=== PATIENT | female | born 1955 | race Caucasian/White ===

== ENCOUNTER → 2017-05-27 09:31 | Outpatient (CLI) | payer OTHER, SELFPAY ==
[2017-05-27 10:34] LABS: Absolute Neutrophil Count 4.3 X10^3/uL (2.0-7.7); Basophil# 0.03 X10^3/uL; Basophil% 0.4 % (0-1); Eosinophil# 0.07 X10^3/uL; Hematocrit 39.4 % (37-47); Hemoglobin 12.9 g/dl (12.0-15.0); Lymphocyte % 28.4 % (19-41); Mean Corp Hgb Conc 32.7 g/gl (32-36); Mean Corpuscular Hgb 28.8 pg (27.0-32.0); Mean Corpuscular Volume 87.9 fL (81-99); Mean Platelet Vol. 11.5 fl (6.2-12.0); Monocyte% 8.5 % (0-10); Neutrophil # 4.33 X10^3/uL (2.7-7.7); Neutrophil % 61.6 % (47-70); POSITIVE COUNT NO; POSITIVE DIFFERENTIAL NO; POSITIVE MORPHOLOGY NO; Platelet Count 223 K/mm3 (150-450); RBC Distribution Width CV 13.3 % (11.6-14.6); RBC Distribution Width SD 41.7 fl (35.1-43.9); Red Blood Count 4.48 M/mm3 (4.2-5.4)
[2017-05-27 10:45] LABS: Microalbumin,Random Urine 57.5 mg/L (NO RANGE EST.); Microalbumin:Creatinine Ratio 34.8 mg/g CRE (<30 mg/g CRE)
[2017-05-27 10:48] LABS: Hemoglobin A1c 7.2 % (4.2-6.3)
[2017-05-27 11:01] LABS: ALB/GLOB Ratio 0.9 RATIO (0.9-2.4); AST(SGOT) 22 U/L (15-37); Alanine Aminotransfer ALT/SGPT 29 U/L (13-56); Albumin, Serum 3.5 g/dL (3.2-5.0); Alkaline Phosphatase 69 U/L (45-117); Anion Gap 11 (5-15); BUN 13 mg/dL (7-18); BUN/Creat Ratio 18.9 RATIO (10-20); Calcium,Total 8.7 mg/dL (8.5-10.1); Chloride 100 mmol/L (98-107); Cholesterol 163 mg/dL (200); Creatinine, Serum 0.69 mg/dL (0.55-1.02); EST Glomerular Filtration Rate 91 mL/min (>60); Est Glom Filt Rate - Afr Amer 111 mL/min (>60); Free T3 2.6 pg/mL (2.18-3.98); Globulin 3.9 g/dL (2.2-4.2); Glucose 171 mg/dL (70-110); High Density Lipoprotein 44 mg/dL; Potassium 3.6 mmol/L (3.5-5.1); Protein, Total 7.4 g/dL (6.4-8.2); Sodium Level 139 mmol/L (136-145); T4 Free Direct 1.37 ng/dL (0.76-1.46); Thyroid Stim Hormone (TSH) 1.52 uIU/mL (0.358-3.74); Triglycerides 156 mg/dL; Very Low Density Lipoprotein 31 mg/dL (5-40)
== END ==
PROVIDERS: Family Provider Family Medicine; PCP Family Medicine; Visit Provider Nurse Practitioner
DX: E11.9 Type 2 diabetes mellitus without complications (principal); I10 Essential (primary) hypertension; E03.9 Hypothyroidism, unspecified
CPT/HCPCS: 80053; 80061; 82043; 82570; 83036; 84439; 84443; 84481; 85025

== ENCOUNTER → 2017-07-02 10:23 | Outpatient (CLI) | payer OTHER, SELFPAY ==
[2017-07-02 10:38] LABS: Mucous, Urine 0 SEEN /hpf (<or=2+); Red Blood Cells-Urine 0 SEEN /hpf (0-5)
[2017-07-02 11:23] LABS: Color, Urine Yellow (Yellow); Glucose, Dipstick Normal (Normal); Ketone-Dipstick Negative (Negative); Leukocyte Esterase-Dipstick 100 /ul (Negative); Nitrite-Dipstick Negative (Negative); Occult Blood-Urine Negative /ul (Negative); Protein-Dipstick Negative (Negative); Specific Gravity, Urine 1.005 (1.002-1.030); Urine Bilirubin Dipstick Negative (Negative); Urine Clarity Sl. Cloudy (Clear); Urine Urobilinogen Normal (Normal)
[2017-07-02 11:35] LABS: Squamous Epithelial Cells - UA 0-5 SEEN /hpf (5-10); White Blood Cells 10-25 SEEN /hpf (0-5)
[2017-07-02 11:36] LABS: Bacteria 1+ /hpf (None Seen)
[2017-07-02 11:40] LABS: Microalbumin,Random Urine 20.6 mg/L (NO RANGE EST.); Microalbumin:Creatinine Ratio 22.7 mg/g CRE (<30 mg/g CRE)
== END ==
PROVIDERS: Family Provider Family Medicine; PCP Family Medicine; Visit Provider Nurse Practitioner
DX: E11.9 Type 2 diabetes mellitus without complications (principal)
CPT/HCPCS: 81001; 82043; 82570

== ENCOUNTER → 2018-01-07 13:49 | Outpatient (CLI) | payer OTHER, SELFPAY ==
[2018-01-07 16:02] LABS: Absolute Lymphocyte Count 2.63 X10^3/ul (0.83-4.51); Absolute Neutrophil Count 5.6 X10^3/uL (2.0-7.7); Basophil# 0.02 X10^3/uL; Basophil% 0.2 % (0-1); Eosinophil# 0.05 X10^3/uL; Eosinophils% 0.6 % (0-5); Hematocrit 40.1 % (37-47); Hemoglobin 13.1 g/dl (12.0-15.0); Lymphocyte # 2.63 X10^3/ul (4.0); Lymphocyte % 29.8 % (19-41); Mean Corp Hgb Conc 32.7 g/gl (32-36); Mean Corpuscular Hgb 28.9 pg (27.0-32.0); Mean Corpuscular Volume 88.3 fL (81-99); Mean Platelet Vol. 11.2 fl (6.2-12.0); Monocyte# 0.56 X10^3/uL; Monocyte% 6.3 % (0-10); Neutrophil # 5.56 X10^3/uL (2.7-7.7); Neutrophil % 62.9 % (47-70); POSITIVE COUNT NO; POSITIVE DIFFERENTIAL NO; POSITIVE MORPHOLOGY NO; Platelet Count 288 K/mm3 (150-450); RBC Distribution Width CV 13.2 % (11.6-14.6); RBC Distribution Width SD 42.2 fl (35.1-43.9); Red Blood Count 4.54 M/mm3 (4.2-5.4); White Blood Count 8.8 K/mm3 (4.4-11.0)
[2018-01-07 16:10] LABS: Anion Gap 12 (5-15); BUN 13 mg/dL (7-18); BUN/Creat Ratio 19.4 RATIO (10-20); Calcium,Total 9.4 mg/dL (8.5-10.1); Chloride 98 mmol/L (98-107); Creatinine, Serum 0.67 mg/dL (0.55-1.02); EST Glomerular Filtration Rate 94 mL/min (>60); Est Glom Filt Rate - Afr Amer 114 mL/min (>60); Glucose 133 mg/dL (74-106); Potassium 3.6 mmol/L (3.5-5.1); Sodium Level 140 mmol/L (136-145); T4 Free Direct 1.48 ng/dL (0.76-1.46); Thyroid Stim Hormone (TSH) 0.98 uIU/mL (0.358-3.74)
== END ==
PROVIDERS: Family Provider Family Medicine; PCP Family Medicine; Visit Provider Family Medicine
DX: E11.9 Type 2 diabetes mellitus without complications (principal); I10 Essential (primary) hypertension; E03.9 Hypothyroidism, unspecified
CPT/HCPCS: 36415; 80048; 84439; 84443; 85025

== ENCOUNTER → 2018-06-18 10:48 | Outpatient (CLI) | payer MEDICARE, BC, SELFPAY ==
[2017-07-02 09:31] VITALS: BMI 40.4
[2018-06-18 11:52] LABS: Microalbumin,Random Urine 15.4 mg/L (NO RANGE EST.)
[2018-06-18 12:08] LABS: Vitamin D,25 Hydroxy 32.3 ng/mL (29.95-100.01)
[2018-06-18 12:34] LABS: ALB/GLOB Ratio 0.8 RATIO (0.9-2.4); AST(SGOT) 18 U/L (15-37); Alanine Aminotransfer ALT/SGPT 22 U/L (13-56); Albumin, Serum 3.4 g/dL (3.2-5.0); Alkaline Phosphatase 89 U/L (45-117); Anion Gap 12 (5-15); BUN 7 mg/dL (7-18); BUN/Creat Ratio 7.9 RATIO (10-20); Calcium,Total 9.4 mg/dL (8.5-10.1); Chloride 92 mmol/L (98-107); Cholesterol 198 mg/dL (200); Creatinine, Serum 0.88 mg/dL (0.55-1.02); EST Glomerular Filtration Rate 68 mL/min (>60); Est Glom Filt Rate - Afr Amer 82 mL/min (>60); Free T3 2.5 pg/mL (2.18-3.98); Globulin 4.2 g/dL (2.2-4.2); Glucose 485 mg/dL (74-106); High Density Lipoprotein 43 mg/dL; Potassium 3.8 mmol/L (3.5-5.1); Protein, Total 7.6 g/dL (6.4-8.2); Sodium Level 135 mmol/L (136-145); T4 Free Direct 1.76 ng/dL (0.76-1.46); Thyroid Stim Hormone (TSH) 0.69 uIU/mL (0.358-3.74); Triglycerides 179 mg/dL; Very Low Density Lipoprotein 36 mg/dL (5-40)
[2018-06-18 12:37] LABS: Hemoglobin A1c 11.4 % (4.2-6.3)
== END ==
PROVIDERS: Family Provider Family Medicine; PCP Family Medicine; Referring Provider Nurse Practitioner; Visit Provider Nurse Practitioner
DX: E11.9 Type 2 diabetes mellitus without complications (principal); E89.0 Postprocedural hypothyroidism
CPT/HCPCS: 36415; 80053; 80061; 82043; 82306; 82570; 83036; 84439; 84443; 84481

== ENCOUNTER → 2020-03-20 11:28 | Outpatient (CLI) | payer MEDICARE, OTHER, SELFPAY ==
[2018-06-25 10:41] VITALS: BMI 34.9
[2020-03-20 15:23] LABS: Absolute Lymphocyte Count 2.48 X10^3/uL (0.83-4.51); Absolute Neutrophil Count 4.9 X10^3/uL (2.0-7.7); Basophil# 0.06 X10^3/uL; Basophil% 0.7 % (0-1); Eosinophil# 0.07 X10^3/uL; Eosinophils% 0.9 % (0-5); Hematocrit 41.8 % (37-47); Hemoglobin 13.2 g/dL (12.0-15.0); Lymphocyte # 2.48 X10^3/ul (4.0); Lymphocyte % 30.7 % (19-41); Mean Corp Hgb Conc 31.6 g/dL (32-36); Mean Corpuscular Hgb 28.5 pg (27.0-32.0); Mean Corpuscular Volume 90.3 fL (81-99); Mean Platelet Vol. 11.2 fl (6.2-12.0); Monocyte# 0.57 X10^3/uL; Monocyte% 7.1 % (0-10); NRBC Flagged by Analyzer 0 % (0-5); Neutrophil # 4.87 X10^3/uL (2.7-7.7); Neutrophil % 60.4 % (47-70); Platelet Count 280 K/mm3 (150-450); RBC Distribution Width CV 12.9 % (11.6-14.6); RBC Distribution Width SD 42.5 fl (35.1-43.9); Red Blood Count 4.63 M/mm3 (4.2-5.4); White Blood Count 8.1 K/mm3 (4.4-11.0)
[2020-03-20 15:54] LABS: ALB/GLOB Ratio 0.8 RATIO (0.9-2.4); AST(SGOT) 13 U/L (15-37); Alanine Aminotransfer ALT/SGPT 22 U/L (13-56); Albumin, Serum 3.4 g/dL (3.2-5.0); Alkaline Phosphatase 71 U/L (45-117); Anion Gap 8 (5-15); BUN 14 mg/dL (7-18); BUN/Creat Ratio 20.8 RATIO (10-20); Calcium,Total 9.2 mg/dL (8.5-10.1); Chloride 102 mmol/L (98-107); Creatinine, Serum 0.67 mg/dL (0.55-1.02); EST Glomerular Filtration Rate 93 mL/min (>60); Est Glom Filt Rate - Afr Amer 112 mL/min (>60); Globulin 4.2 g/dL (2.2-4.2); Glucose 133 mg/dL (74-106); Potassium 3.6 mmol/L (3.5-5.1); Protein, Total 7.6 g/dL (6.4-8.2); Sodium Level 140 mmol/L (136-145); T4 Free Direct 1.24 ng/dL (0.76-1.46); Thyroid Stim Hormone (TSH) 5.49 uIU/mL (0.358-3.74)
== END ==
PROVIDERS: PCP Family Medicine; Visit Provider Family Medicine
DX: E11.65 Type 2 diabetes mellitus with hyperglycemia (principal); E03.9 Hypothyroidism, unspecified; I10 Essential (primary) hypertension
CPT/HCPCS: 36415; 80053; 84439; 84443; 85025

== ENCOUNTER 2020-07-04 16:53 | Outpatient (RCR) | payer MEDICARE, OTHER, SELFPAY ==
[2018-06-25 10:41] VITALS: BMI 34.9
[2020-07-04] MEDS: COVID-19 VACC, MRNA(PFIZER)/PF 30 MCG/0.3 ML SYRINGE IM (14:32)
[2020-07-25] MEDS: COVID-19 VACC, MRNA(PFIZER)/PF 30 MCG/0.3 ML SYRINGE IM (14:21)
== END 2020-10-03 23:59 ==
LOC: IMMUN 16:53
PROVIDERS: PCP Family Medicine; Referring Provider Family Medicine; Visit Provider Family Medicine
DX: Z23 Encounter for immunization (principal)
CPT/HCPCS: 0001A; 0002A; 91300

== ENCOUNTER 2021-12-29 21:23 | Emergency (ER) | payer MEDICARE, OTHER, SELFPAY ==
[2021-12-29 21:24] VITALS: BP 165/76; PULSE 112; RESP 18; TEMP 36.4; O2SAT 97; BMI 40.2
--- NOTE | 2021-12-29 21:35 | EX.ED.UPPERE ---
HPI History of Present Illness Chief Complaint: Upper Extremity Injury Detail of Chief Complaint: Injury to left arm status post fall Informant: patient Occured/Mechanism Mechanism/Context: Yes fall and Yes same level fall Comment: Patient tripped. Landed on her left arm. She complains of pain mid left arm Onset/Context/Timing Context: Sudden Onset Timing: Continuous Quality of Pain: Dull and Aching Location: Left arm Current Severity: Mild Maximum Severity: Moderate Worsened by: Movement Relieved by: Nothing Associated Symptoms Associated Symptoms: Negative for Parasthesia, Weakness or Loss of Funtion Narrative Narrative: Patient is a 66-year-old [id number] woman who presents after mechanical fall. She complains of pain left arm. Denies paresthesia, anesthesia medics. She denies head trauma. Denies neck pain. Denies loss of conscious. She is not on an anticoagulant. Tetanus Immunization: 5-10 years Prior similar symptoms: No Recent Illness/Hospitalization: No PFSH PFS Medical History (Updated 12/29/21 @ 22:[address] Clifton Velasco MD) Bone fracture Diabetes type 2, controlled Gallstones High cholesterol Hives HTN (hypertension) Hx of nephrolithotomy with removal of calculi Thyroid disease UTI (urinary tract infection) Home Medications atenolol 25 mg tablet 25 mg PO QDAY 05/21/17 [History Last Taken Unknown] metformin 500 mg tablet (Glucophage) 500 mg PO BID 05/21/17 [History Last Taken Unknown] potassium chloride 20 mEq tablet,extended release 20 meq PO BID 05/21/17 [History Last Taken Unknown] simvastatin 10 mg tablet 10 mg PO QPM 05/21/17 [History Last Taken Unknown] hydrochlorothiazide 50 mg tablet 50 mg PO QDAY #30 tabs 09/03/17 [Rx Last Taken Unknown] cholecalciferol (vitamin D3) 25 mcg (1,000 unit) tablet 1,000 unit PO DAILY #30 tabs 06/18/18 [Rx Last Taken Unknown] biotin-folic acid-vitamin B complex with C-zinc 3 mg-0.8 mg tablet tab PO 06/25/18 [History Last Taken Unknown] diphenhydramine HCl 25 mg capsule (Allergy Medication) 25 mg PO Q4H PRN 06/25/18 [History Last Taken Unknown] levothyroxine 200 mcg tablet (Levo-T) See Rx Instructions PO .COMPLEX #24 tabs 02/28/19 [Rx Last Taken Unknown] losartan 25 mg tablet 25 mg PO DAILY 06/25/18 [History Last Taken Unknown] oxycodone-acetaminophen 5 mg-325 mg tablet 1 tab PO Q6H PRN PRN pain 5 days #20 TABLETS 12/29/21 [Rx Last Taken Unknown] Allergy/AdvReac Type Severity Reaction Status Date / Time alendronate sodium Allergy Severe Unknown Verified 12/29/21 21:26 [From Fosamax] Sulfa (Sulfonamide Allergy Severe Unknown Verified 12/29/21 21:26 Antibiotics) Family History Mother Cancer Father Cancer Surgical History H/O thyroidectomy H/O: H/O: hysterectomy Hx of cholecystectomy Social History (Updated 12/29/21 @ 21:[address] Clifton Velasco MD) household members: none Smoking Status: Never smoker second hand exposure: No alcohol intake: never substance use type: does not use ROS ROS ED Constitutional Constitutional ED: Denies chills or fever(s) Eyes Eyes: Denies blurry vision, change in vision or diplopia ENT ENT ED: Denies ear pain, rhinorrhea or sore throat Cardiovascular Cardiovascular: Denies chest pain or palpitations Respiratory/Chest Respiratory/Chest: Denies cough or dyspnea Musculoskeletal Musculoskeletal: Reports other Details: Left arm pain ; Denies back pain, myalgias or neck pain Integumentary Denies Abrasions or rash Neurologic Neurologic: Denies paresthesias or other Hematologic/Lymphatic Hematologic/Lymphatic: Denies easy bleeding or easy bruising EXAM Physical Exam Const Vital Signs: 12/29/21 21:24 Temperature 97.6 F L Temperature Source Temporal Pulse Rate 112 H Respiratory Rate 18 Blood Pressure 165/76 H Blood Pressure Mean 105 Pulse Ox 97 Oxygen Delivery Method Room Air Positive well nourished, well developed and obese General Appearance ED: well developed; Negative for NAD Nutritional Appearance: obese HEENT Reports moist mucous membranes normocephalic and atraumatic Eyes PERRL and EOMs intact bilaterally Eyes Narrative: There is no subconjunctival hemorrhage. Neck full ROM and supple Resp normal respiratory effort and clear to auscultation bilaterally Cardio regular rate, regular rhythm, S1 normal heart sound, S2 normal heart sound and no murmurs Back/Spine Cervical Spine: Negative for cervical spine tenderness Thoracic Spine / Upper Back: Negative for thoracic spinal tenderness Extremity Extremity Narrative: Patient is holding her arm internally rotated and AB ducted against her torso. Axillary, median, radial and ulnar function intact. There is no pain to palpation of the phalanges or metacarpal bones. There is no pain the patient with carpal bones or distal radius or ulna. There is no pain ovation over the medial lateral epicondyle, electron process or radial head. Palpation of the arm is remarkable for crepitus. There is no pain to palpation over the proximal humerus, AC joint or clavicle. Neuro oriented x3, CN's II-XII intact bilaterally and moves all extremities Sensorium / Orientation: alert Skin General Skin Exam: Negative for petechiae Lesions: no lesions Rashes: no rashes Trauma: no lacerations or abrasions MDM MDM MDM Narrative Medical decision making narrative: Today was obtained to confirm humeral fracture. Suspect shaft fracture. Radiography Diagnostic Testing: Three-view x-ray of the left shoulder reveals a near three-part fracture involving the proximal humerus. There is a fracture through the surgical neck and there is a fracture of the greater tuberosity with greater than 1 cm displacement. Discharge Plan Triage Chief Complaint: Upper Extremity Injury ED Provider: Clifton Velasco Dx/Rx/DC Orders Clinical Impression: Fracture of proximal end of left humerus Prescriptions: New oxycodone-acetaminophen [oxycodone-acetaminophen] 5-325 mg tablet 1 tab PO Q6H PRN PRN (Reason: pain) 5 Days Qty: 20 0RF No Action metformin [Glucophage] 500 mg tablet 500 mg PO BID potassium chloride 20 mEq tablet extended release 20 meq PO BID atenolol 25 mg tablet 25 mg PO QDAY simvastatin 10 mg tablet 10 mg PO QPM losartan 25 mg tablet 25 mg PO DAILY biotin-folic acid-vitamin B complex with C-zinc 3 mg-0.8 mg tablet 3-0.8 mg tablet PO diphenhydramine HCl [Allergy Medication] 25 mg capsule 25 mg PO Q4H PRN levothyroxine [Levo-T] 200 mcg tablet See Rx Instructions PO .COMPLEX Qty: 24 11RF Dose Instruction: PO 1 tab Friday - Friday Rx Instructions: PO 1 tab Friday - Friday hydrochlorothiazide 50 mg tablet 50 mg PO QDAY Qty: 30 11RF cholecalciferol (vitamin D3) 1,000 unit tablet 1,000 unit PO DAILY Qty: 30 0RF Primary Care Provider: Osman Mcknight Referrals: Dakotah Rosa DO [Med Staff - Active Staff] - 3-5 Days Osman Mcknight MD [Primary Care Provider] - Activity Restrictions/Additional Instructions: 1. Wear sling and swath for comfort 2. Apply ice 6-10 times a day 3. Take pain medicine for your discomfort 4. Call Dr. Anthony Mims's office Friday to be seen since you in all likelihood will need to have this surgically repaired Disposition Disposition: Home, Self Care
[2021-12-29] MEDS: HYDROcodone Bitartrate/Apap 5/325 Tablet PO (21:37)
--- NOTE | 2021-12-29 21:55 | RAD_ITS ---
STUDY: X-RAY - LEFT SHOULDER REASON FOR EXAM: Female, 66 years old. Injury/Pain TECHNIQUE: 3 view(s) of the shoulder. COMPARISON: None. FINDINGS: Normal glenohumeral articulation. Normal acromioclavicular joint. Normal acromion. Acute impacted fracture the humeral neck. The soft tissue structures are unremarkable. Normal visualized pulmonary apex. RAD/Shoulder min 2 Views IMPRESSION: Acute impacted humeral neck fracture. Electronically Signed: Rory Lancaster MD at 22:15 EDT ,
== END 2021-12-29 22:42 | disposition home or self-care (01) ==
PROVIDERS: Emergency Provider Emergency Medicine; PCP Family Medicine; Visit Provider Emergency Medicine
DX: S42.212A Unspecified displaced fracture of surgical neck of left humerus, initial encounter for closed fracture (principal); Z68.41 Body mass index [BMI] 40.0-44.9, adult; E11.9 Type 2 diabetes mellitus without complications; Z87.19 Personal history of other diseases of the digestive system; E78.00 Pure hypercholesterolemia, unspecified; I10 Essential (primary) hypertension; Z87.440 Personal history of urinary (tract) infections; E07.9 Disorder of thyroid, unspecified; Z79.899 Other long term (current) drug therapy; Z79.84 Long term (current) use of oral hypoglycemic drugs; E66.9 Obesity, unspecified; W19.XXXA Unspecified fall, initial encounter; S42.252A Displaced fracture of greater tuberosity of left humerus, initial encounter for closed fracture
CPT/HCPCS: 73030; 99283

== ENCOUNTER → 2022-01-04 | Outpatient (CLI) | payer MEDICARE, OTHER, SELFPAY ==
--- NOTE | 2022-01-04 16:58 | CT_ITS ---
STUDY: CT LEFT SHOULDER REASON FOR EXAM: Female, 66 years old. Humeral fracture. RADIATION DOSAGE (If Supplied By Facility): CTDIvol = ( 25.29 ) mGy, DLP = ( 654.54 ) mGycm TECHNIQUE: The patient was scanned in a multi detector CT scanner. High resolution transaxial imaging was performed without the administration of intravenous contrast material. Sagittal and coronal images were reconstructed. Individualized dose optimization techniques were used for this CT. COMPARISON: Left shoulder, 12/29/2021. FINDINGS: Normal glenoid rim, neck and visualized scapula. There is maintenance of the glenohumeral articulation. There is a comminuted fracture of the humeral head and neck with impaction of the shaft into the underside of the articular surface of the humerus. There are fracture lines extending into the articular surface. . Normal coracoid process. Normal visualized lateral clavicle. Normal acromioclavicular articulation. There is a Type II morphology (curved), with a neutral orientation. Normal visualized muscles and soft tissue structures. CT/Extremity Upper without Contra IMPRESSION: Comminuted fracture of the humeral head without dislocation. Electronically Signed: Huber Lew DO at 23:07 EDT ,
== END | disposition home or self-care (01) ==
LOC: CT 16:57
PROVIDERS: PCP Family Medicine; Referring Provider Physician Assistant Surgical; Visit Provider Physician Assistant Surgical
DX: S42.232A 3-part fracture of surgical neck of left humerus, initial encounter for closed fracture (principal)
CPT/HCPCS: 73200

== ENCOUNTER 2022-01-23 15:20 | Observation (INO) | payer MEDICARE, OTHER, SELFPAY ==
--- NOTE | 2022-01-22 12:50 | EKG12_ITS ---
Test Reason : PREOP Blood Pressure : / mmHG Vent. Rate : 090 BPM Atrial Rate : 090 BPM P-R Int : 190 ms QRS Dur : 080 ms QT Int : 360 ms P-R-T Axes : 011 011 013 degrees QTc Int : 440 ms Normal sinus rhythm Normal ECG Confirmed by RAFA CAMERON, DEMETRI ([id number]), news copy editor ANDREY CORREIA ([id number]) on 01/23/2022 9:05:18 AM Referred By: Osman Ramirez Confirmed By:DEMETRI CRAIG MD
[2022-01-22 13:32] LABS: Absolute Lymphocyte Count 2.33 X10^3/uL (0.83-4.51); Absolute Neutrophil Count 5.3 X10^3/uL (2.0-7.7); Basophil# 0.04 X10^3/uL; Basophil% 0.5 % (0-1); Eosinophil# 0.06 X10^3/uL; Eosinophils% 0.7 % (0-5); Hematocrit 40.8 % (37-47); Hemoglobin 12.7 g/dL (12.0-15.0); Lymphocyte # 2.33 X10^3/ul (0.83-4.51); Lymphocyte % 27.8 % (19-41); Mean Corp Hgb Conc 31.1 g/dL (32-36); Mean Corpuscular Hgb 27.4 pg (27.0-32.0); Mean Corpuscular Volume 88.1 fL (81-99); Mean Platelet Vol. 10.7 fl (6.2-12.0); Monocyte# 0.62 X10^3/uL; Monocyte% 7.4 % (0-10); NRBC Flagged by Analyzer 0 % (0-5); Neutrophil # 5.32 X10^3/uL (2.7-7.7); Neutrophil % 63.4 % (47-70); Platelet Count 298 K/mm3 (150-450); RBC Distribution Width CV 13.9 % (11.6-14.6); RBC Distribution Width SD 44.6 fl (35.1-43.9); Red Blood Count 4.63 M/mm3 (4.2-5.4); White Blood Count 8.4 K/mm3 (4.4-11.0)
[2022-01-22 13:49] LABS: Magnesium 1.2 mg/dL (1.6-2.6)
[2022-01-22 13:50] LABS: Hemoglobin A1c 7.3 % (3.8-5.6)
[2022-01-22 14:00] LABS: ALB/GLOB Ratio 0.8 RATIO (0.9-2.4); AST(SGOT) 11 U/L (15-37); Alanine Aminotransfer ALT/SGPT 17 U/L (13-56); Albumin, Serum 3.4 g/dL (3.2-5.0); Alkaline Phosphatase 100 U/L (45-117); Anion Gap 9 (5-15); BUN 9 mg/dL (7-18); BUN/Creat Ratio 16.3 RATIO (10-20); Calcium,Total 9.5 mg/dL (8.5-10.1); Chloride 102 mmol/L (98-107); Creatinine, Serum 0.55 mg/dL (0.55-1.02); EST Glomerular Filtration Rate 116 mL/min (>60); Est Glom Filt Rate - Afr Amer 141 mL/min (>60); Estimated Creatinine Clearance 42.59 ml/min; Globulin 4.2 g/dL (2.2-4.2); Glucose 132 mg/dL (74-106); Potassium 3.7 mmol/L (3.5-5.1); Protein, Total 7.6 g/dL (6.4-8.2); Sodium Level 142 mmol/L (136-145); Thyroid Stim Hormone (TSH) 1.82 uIU/mL (0.358-3.74)
[2022-01-23] VITALS (14 sets, daily range): BP systolic 97–136; BP diastolic 56–73; PULSE 56–100; RESP 14–20; TEMP 36.2–37.1; O2SAT 86–100; BMI 38.2
--- NOTE | 2022-01-23 07:11 | PCM.HP.STD ---
HPI - General HPI Narrative KATHERIN CHANEY, is a 66 F who presents for left RTSA for fracture. H and P reviewed, and no changes. Risks and benefits again discussed. Wishes to proceed. Had a clearance medically with regards to her diabetes, which has been improving recently. MR#: [id number] Acct: [id number] Name:KATHERIN GRANGER Rep #: [id number] : 1955 ? ? Provider: Dr. Osman Ramirez MD Age/Sex:? 66/F ? ? Location: [facility] [place].[facility] Status: Signed Intake Vital Signs ? 12/29/2220:24 01/07/2211:19 01/10/2213:43 Height 5 ft 2 in 5 ft 2 in 5 ft 2 in Weight: 220 lb ? 210 lb BMI 40.2 ? 38.4 BP 165/76 H ? ? Respiration 18 ? ? Pulse 112 H ? ? Temp 97.6 F L ? ? Temp Source Temporal ? ? Pulse Oximetry (%) 97 ? ? Intake Visit Reasons:?LEFT SHOUDLER Chief Complaint: left shoulder Accompanied by: Is patient in pain?: Yes Pain scale (1-10): 9 Allergies alendronate sodium [From Fosamax] Allergy (Severe, Verified 12/29/21 21:26) UnknownSulfa (Sulfonamide Antibiotics) Allergy (Severe, Verified 12/29/21 21:26) Unknown Medications atenolol 25 mg tablet 25 mg PO QDAY 05/21/17 [History Confirmed 01/10/22] metformin 500 mg tablet (Glucophage) 500 mg PO BID 05/21/17 [History Confirmed 01/10/22] potassium chloride 20 mEq tablet,extended release 20 meq PO BID 05/21/17 [History Confirmed 01/10/22] simvastatin 10 mg tablet 10 mg PO QPM 05/21/17 [History Confirmed 01/10/22] hydrochlorothiazide 50 mg tablet 50 mg PO QDAY #30 tabs 09/03/17 [Rx Confirmed 01/10/22] cholecalciferol (vitamin D3) 25 mcg (1,000 unit) tablet 1,000 unit PO DAILY #30 tabs 06/18/18 [Rx Confirmed 01/10/22] biotin-folic acid-vitamin B complex with C-zinc 3 mg-0.8 mg tablet tab PO 06/25/18 [History Confirmed 01/10/22] diphenhydramine HCl 25 mg capsule (Allergy Medication) 25 mg PO Q4H PRN 06/25/18 [History Confirmed 01/10/22] levothyroxine 200 mcg tablet (Levo-T) See Rx Instructions PO .COMPLEX #24 tabs 06/25/18 [Rx Confirmed 01/10/22] losartan 25 mg tablet 25 mg PO DAILY 06/25/18 [History Confirmed 01/10/22] insulin glargine 100 unit/mL (3 mL) subcutaneous pen (Lantus Solostar U-100 Insulin) 50 unit subcut 01/10/22 [History Confirmed 01/10/22] PFSH Medical History? Bone fracture Closed fracture of left proximal humerus Diabetes type 2, controlled Gallstones High cholesterol Hives HTN (hypertension) Hx of nephrolithotomy with removal of calculi Thyroid disease UTI (urinary tract infection) Surgical History? H/O thyroidectomy H/O: H/O: hysterectomy Hx of cholecystectomy Family History? Mother CancerFather Cancer Social History? household members:? none Smoking Status:? Never smoker second hand exposure:? No alcohol intake:? never substance use type:? does not use HPI LEFT SHOUDLER Details: Parts of this documentation were recorded by a scribe, this documentation accurately reflects the service provided and the decisions made by me, Dr. Osman Ramirez MD 01/10/22 0805. KATHERIN CHANEY is a 66 year old F here today for evaluation of a left proximal humerus fracture. 2 weeks ago tripped in the drive [employer]. This is on the left side. No prior problems with the elbow or hand, some discomfort in the thumb. Was seen at [facility], they ordered a CT scan, and not exactly sure what is going on there. Does not use a walker, does drive, does own groceries and cooking, here with her . 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 Ortho Exam General General: Yes no acute distress Neurologic: Yes alert and Yes oriented x3 Psychologic: Yes reasonable and appropriate Left Shoulder Skin/Wound: Yes CDI, Yes ecchymosis, No erythema and Yes swelling Contralateral Normal: Yes Testing: Yes TTP AC Joint SHOULDER: There is moderate bruising at the mid aspect of the left humerus.? Normal axillary nerve motor and sensory function as well as normal sensation motor function throughout the hand in the median radial ulnar nerve distributions and AIN/PIN.? Hand is warm and? Well-perfused with a good radial pulse.? ?no pain at the clavicle. Supplemental Info TUDY: ? X-RAY - LEFT SHOULDER REASON FOR EXAM: ? Female, 66 years old.? Injury/Pain TECHNIQUE: ? 3 view(s) of the shoulder. COMPARISON: ? None. FINDINGS: Normal glenohumeral articulation.? Normal acromioclavicular joint.? Normal acromion. Acute impacted fracture the humeral neck. The soft tissue structures are unremarkable. Normal visualized pulmonary apex. RAD/Shoulder min 2 Views IMPRESSION: Acute impacted humeral neck fracture. ? Electronically Signed: MD CASS YadavDY:? CT LEFT SHOULDER REASON FOR EXAM: ? Female, 66 years old.? Humeral fracture. RADIATION DOSAGE (If Supplied By Facility):? CTDIvol = ( 25.29 ) mGy, DLP = ( 654.54 ) mGycm TECHNIQUE: ? The patient was scanned in a multi detector CT scanner.? High resolution transaxial imaging was performed without the administration of intravenous contrast material.? Sagittal and coronal images were reconstructed. Individualized dose optimization techniques were used for this CT. COMPARISON: ? Left shoulder, 12/29/2021. FINDINGS: Normal glenoid rim, neck and visualized scapula.? There is maintenance of the glenohumeral articulation. There is a comminuted fracture of the humeral head and neck with impaction of the shaft into the underside of the articular surface of the humerus. There are fracture lines extending into the articular surface.? . Normal coracoid process. Normal visualized lateral clavicle.? Normal acromioclavicular articulation. There is a Type II morphology (curved), with a neutral orientation. Normal visualized muscles and soft tissue structures. CT/Extremity Upper without Contra IMPRESSION: Comminuted fracture of the humeral head without dislocation. ? Electronically Signed: Huber Lew DO at 23:07 EDT Coding Level of Care Code Off vis,new,level 3 Diagnoses Closed fracture of left proximal humerus? S42.A Assessment and Plan Assessment and Plan (1) Closed fracture of left proximal humerus: ?Status:?Acute ?Plan: 66-year-old female with a comminuted impacted left proximal humerus fracture.? Her options here here would be doing nothing / conservative management physical therapy weaning out of the sling, gradual resumption of activites, as well as open reduction internal fixation, hemiarthroplasty as well as reverse total shoulder arthroplasty.? There is pros and cons risks and benefits to each of these methods of treatment.? Overall my impression of the literature is that these tend to do better overall in terms of functional outcomes and range of motion with reverse total shoulder arthroplasty however this certainly has its own set of risks including loosening notching fracture or instability and infection which I did let her know that if this was the outcome this would require at least 2 more surgeries to revise and correct.? She wishes to go ahead with a left reverse total shoulder arthroplasty the recovery for this is 3 to 4 weeks in a sling and 3 to 4 months of physical therapy.? Expected outcome is to return to normal activities of daily living including some light sports but no heavy lifting or pushing on the upper extremity. Pros and cons risks and benefits were discussed with the patient including but not limited to infection, pain, stiffness, bleeding, damage to surrounding structures, neurovascular injury, recurrence or retear, failure or wear of hardware or fixation, instability, fracture, deep vein thrombosis and pulmonary embolism, anesthetic risks, patient dissatisfaction, need for further surgery and other risks.? Patient understood and wished to proceed with surgery, and signed the informed consent documentation. COUNTS INCLUDE 234 BEDS AT THE [facility] Medical History (Updated 01/18/22 @ 10:11 by Ivania Tejeda) Bone fracture Closed fracture of left proximal humerus Diabetes type 2, controlled Gallstones High cholesterol Hives HTN (hypertension) Hx of nephrolithotomy with removal of calculi Non-smoker Post-menopausal Thyroid disease UTI (urinary tract infection) Wears glasses Home Medications atenolol 25 mg tablet 25 mg PO QDAY 05/21/17 [History Last Taken 01/23/22] metformin 500 mg tablet (Glucophage) 500 mg PO BID 05/21/17 [History Last Taken Unknown] potassium chloride 20 mEq tablet,extended release 20 meq PO BID 05/21/17 [History Last Taken Unknown] simvastatin 10 mg tablet 10 mg PO QPM 05/21/17 [History Last Taken Unknown] hydrochlorothiazide 50 mg tablet 50 mg PO QDAY #30 tabs 09/03/17 [Rx Last Taken Unknown] cholecalciferol (vitamin D3) 25 mcg (1,000 unit) tablet 1,000 unit PO DAILY #30 tabs 06/18/18 [Rx Last Taken Unknown] diphenhydramine HCl 25 mg capsule (Allergy Medication) 25 mg PO Q4H PRN Allergy Symptoms 06/25/18 [History Last Taken Unknown] levothyroxine 200 mcg tablet (Levo-T) See Rx Instructions PO .COMPLEX #24 tabs 06/25/18 [Rx Last Taken 01/22/22] losartan 25 mg tablet 25 mg PO DAILY 06/25/18 [History Last Taken 01/23/22] insulin glargine 100 unit/mL (3 mL) subcutaneous pen (Lantus Solostar U-100 Insulin) 50 unit subcut QHS 01/10/22 [History Last Taken 01/22/22] ascorbic acid (vitamin C) 500 mg tablet (Vitamin C) 500 mg PO DAILY 01/18/22 [History Last Taken Unknown] zinc 50 mg capsule 50 mg PO DAILY 01/18/22 [History Last Taken Unknown] Allergy/AdvReac Type Severity Reaction Status Date / Time alendronate sodium Allergy Severe Unknown Verified 01/18/22 09:55 [From Fosamax] Sulfa (Sulfonamide Allergy Severe Unknown Verified 01/18/22 09:55 Antibiotics) Family History Mother Cancer Father Cancer Surgical History (Updated 01/18/22 @ 10:11 by Ivania Tejeda) H/O thyroidectomy H/O: H/O: hysterectomy Hx of cholecystectomy Social History household members: none Smoking Status: Never smoker second hand exposure: No alcohol intake: never substance use type: does not use Vital Signs Vital Signs Vital Signs: Weight Weight: 210 lb Results Lab / Micro Data Result Diagrams: 01/22/22 13:07 01/22/22 13:05 Labs: Laboratory Results - last 24 hr 01/22/22 13:05: Sodium 142, Potassium 3.7, Chloride 102, Carbon Dioxide 31.0, Anion Gap 9, BUN 9, Creatinine 0.55, Estim Creat Clear Calc 42.59, Est GFR (MDRD) Af Amer 141, Est GFR (MDRD) Non-Af 116, BUN/Creatinine Ratio 16.3, Glucose 132 H, Calcium 9.5, Total Bilirubin 0.60, AST 11 L, ALT 17, Alkaline Phosphatase 100, Total Protein 7.6, Albumin 3.4, Globulin 4.2, Albumin/Globulin Ratio 0.8 L, TSH 1.82 01/22/22 13:05: Hemoglobin A1c 7.3 H 01/22/22 13:05: Magnesium 1.2 L 01/22/22 13:07: WBC 8.4, RBC 4.63, Hgb 12.7, Hct 40.8, MCV 88.1, MCH 27.4, MCHC 31.1 L, RDW Std Deviation 44.6 H, RDW Coeff of Gagandeep 13.9, Plt Count 298, MPV 10.7, Immature Gran % (Auto) 0.200, Neut % (Auto) 63.4, Lymph % (Auto) 27.8, [place] % (Auto) 7.4, Eos % (Auto) 0.7, Baso % (Auto) 0.5, Absolute Neuts (auto) 5.3, Absolute Lymphs (auto) 2.33, Nucleated RBC % 0
[2022-01-23] MEDS: Lactated Ringers 1,000 ML 999 ML IV (07:25)
[2022-01-23] MEDS: Acetaminophen 500 MG Tablet 1000 MG PO (07:27)
[2022-01-23] MEDS: Gabapentin 600 MG Tablet PO (07:27)
[2022-01-23 07:51] LABS: Bedside Glucose 164 mg/dL (74-106)
[2022-01-23] MEDS: Lactated Ringers 1,000 ML 75 ML IV (08:00)
[2022-01-23] MEDS: TXA 1000mg in NS100 100ml (IVPB at Incision) 660 MG IV (08:40)
--- NOTE | 2022-01-23 10:26 | RAD_ITS ---
STUDY: INTRAOPERATIVE FLUOROSCOPY TECHNIQUE: The examination was performed with referring physician in attendance. Under fluoroscopic observation, fluoroscopic images were obtained. Radiologist was not present for the study. Radiologist did not perform the procedure. This dictation is for documentation of the radiation dosage only. There is no interpretation of the images. TOTAL NUMBER OF IMAGES: 1 COMPARISON: None RADIATION DOSE: 1 mGy FLUOROSCOPY TIME: 7.6 seconds REASON FOR EXAM: TOTAL SHOULDER REPLACEMENT Female, 66 years old. FINDINGS: Total right shoulder arthroplasty. RAD/Shoulder min 2 Views IMPRESSION: Fluoroscopic assistance images were obtained. Dictation for documentation purposes only. Electronically Signed: Arnoldo Palacio MD at 17:00 EDT ,
--- NOTE | 2022-01-23 11:28 | OP.PCM_ITS ---
Problems Associated Problem List Diagnoses (1) Closed fracture of left proximal humerus: Report of Operation Date of Procedure: 01/23/22 Pre-Operative Diagnosis: Left proximal humerus fracture Post-Operative Diagnosis: Left proximal humerus fracture Surgery/Procedure Performed:: Left reverse total shoulder arthroplasty Surgeon: Osman Ramirez Type of Anesthesia: General Anesthesiologist: Huy Manjarrez Estimated Blood Loss (mL): 150 Description of Procedure: Patient was brought to the operating room theater. They unfortunately could not receive a block due to their BMI. They were placed supine on the operating room table a beachchair positioner and the trimano arm positioner was used to the left side. Sequential devices on the legs. All bony prominences were padded. General anesthesia was induced. 2 g of IV Ancef administered prior to the start of the procedure. Patient sat up. Eyes were protected. Left upper extremity prepped and draped in the usual sterile fashion allowing over 3 minutes for the chlorhexidine-based prep solution to thoroughly dry prior to draping. Preope rative timeout performed to confirm the site patient and surgery. I began by making a standard deltopectoral incision. I. The dissection down through skin and subcutaneous tissue achieved meticulous hemostasis. I incised on the lateral aspect of the conjoined tendon and retracted this medially and the cephalic vein I retracted laterally and cauterized any crossing vessels. I did use Floseal as well as cauterizing the anterior humeral circumflex vessels as well as using 2-0 Vicryl sutures. Performed a subscapularis peel. Identified the fracture site I incised at the biceps groove. I excised the biceps. Lesser and greater tuberosities were completely comminuted unreconstructable and not attached to the subscapularis however there was some small amount of the posterior aspect of the supraspinatus as well as the infraspinatus that was still attached to bony fragments and so I preserved these. I felt the axillary nerve normal tension. I protected this. I retracted the subscapularis I developed a plane between that and the capsule. I used an oscillating saw to perform the osteotomy removing the articular surface as well as the lesser tuberosity fragment and some of the greater tuberosity. Identified the glenoid. Identified the bony extent of the glenoid. There is some minor anterior inferior comminution but overall the glenoid was intact. Identified the center of the glenoid. I used preoperative CT-based blueprint planning software which placed the glenosphere baseplate to the center to slightly inferior and this is what I used as my guide. I used reaming and then the center peg reaming drill. I then used the standard drill bit to a depth of 25 mm. I aimed this anterior and slightly superior to avoid superior tilt of the baseplate. Baseplate with the central screw was then assembled size 25 mm baseplate with a 25 mm long central screw. I am I screwed this into place achieve good fixation. I drilled the superior and inferior locking screws. I placed a 30 mm screw superiorly and a 26 mm screw inferiorly. These achieved good purchase and solid fixation of the baseplate. Pulse irrigation lavage was then performed. I then impacted this Tornier perform standard glenosphere onto the Tornier perform reverse glenoid standard baseplate Next I turned my attention to the humeral side. I used sounders and compactor's up to a size 3. I trialed with a size 3B. This was still quite loose. I upsized to the 12 mm reverse tray with 9 mm polyethylene until the component was stable and solid full range of motion in forward elevation external rotation and internal rotation both with the arm at the side of the body and abducted 90 degrees. No obvious impingement no levering out. Normal shuck test. Normal axillary nerve tension and normal tension on the conjoined tendon. I remove the trial components and impacted the final components which measured the same size. I reduced the shoulder. I took an intraoperative radiograph. This showed good reduction and positioning of both the baseplate glenosphere and humeral components. I thoroughly irrigated the wound. I used 1 g of vancomycin powder. I used 15 cc of 1/4% Marcaine plain in the subcutaneous tissue. Subscapularis was not repaired intentionally. Subcutaneous tissue was closed with interrupted 2-0 Vicryl suture and skin with 3-0 Monocryl. Skin was cleaned with wet and dry dressing followed application of Steri-Strips Telfa 4 x 4 gauze abdominal pad dressings and cloth tape with a arc pillow sling for the left upper extremity. Patient woken up from general anesthetic transferred off the operating room table and taken to postanesthetic care unit in stable condition. All sponge needle instrument counts were correct no complications. Blood loss about 150 cc. Plan for the patient gentle pendulum exercises sling for the next 2 weeks follow-up in 2 weeks time patient to leave the bandage on until follow- up. Avoid positions of danger and I will send in a prescription for combined Tylenol narcotic medication and I did give the patient appropriate counseling along with her preoperatively. Complications none Admit VTE Documentation VTE Present on Admission: No VTE Mechan Device Prophylaxis: SCD's VTE Pharm Prophylaxis ordered?: No Reason prophylaxis not ordered:: Treatment Not Indicated Procedures Musculoskeletal [id number]: Other Procedure See Report
--- NOTE | 2022-01-23 11:39 | DCINST_ITS ---
Discharge Instructions Diet Discharge Diet: No restrictions Activity Discharge Activity: May Not Drive and May Not Shower Lifting Restrictions: no lifting over a pound, no ER over 20 degrees, no FE over 90 Dressing / Incision Call your doctor if your incision/area has: Continuous Slow Oozing, Sudden Increased Bleeding, Increased Pain/ Swelling, Increased Redness, Foul Smelling Discharge and Swelling at the incision site Change Dressing in: leave in place till F/U Cleanse incision/area with: Do not get Incision Wet Follow Up Care Please Follow Up With: Osman Ramirez MD When: 2 weeks Test Results: Test results from this visit will be discussed in further detail at your follow- up appointment, if applicable. Discharge Plan Admission Primary Reason for Your Visit: left reverse shoulder replacement Attending Provider: Osman Ramirez Primary Care Provider: Osman Mcknight Instructions Patient Instructions: Reverse Total Shoulder Replacement Discharge Orders/Prescriptions Prescriptions: New oxycodone-acetaminophen [Endocet] 5-325 mg tablet 1 tab PO Q4H MDD 6 PRN (Reason: pain) 6 Days Qty: 30 0RF No Action metformin [Glucophage] 500 mg tablet 500 mg PO BID potassium chloride 20 mEq tablet extended release 20 meq PO BID atenolol 25 mg tablet 25 mg PO QDAY simvastatin 10 mg tablet 10 mg PO QPM losartan 25 mg tablet 25 mg PO DAILY diphenhydramine HCl [Allergy Medication] 25 mg capsule 25 mg PO Q4H PRN (Reason: Allergy Symptoms) levothyroxine [Levo-T] 200 mcg tablet See Rx Instructions PO .COMPLEX Qty: 24 11RF Dose Instruction: PO 1 tab Friday - Friday Rx Instructions: PO 1 tab Friday - FRIDAY insulin glargine [Lantus Solostar U-100 Insulin] 100 unit/mL (3 mL) insulin pen 50 unit subcut QHS Label Comments: INJECT 50 UNITS SUBCUTANEOUSLY DAILY AFTER DINNER ascorbic acid (vitamin C) [Vitamin C] 500 mg Tablet 500 mg PO DAILY zinc 50 mg Capsule 50 mg PO DAILY hydrochlorothiazide 50 mg tablet 50 mg PO QDAY Qty: 30 11RF cholecalciferol (vitamin D3) 1,000 unit tablet 1,000 unit PO DAILY Qty: 30 0RF Referrals / Follow Up: Osman Mcknight MD [Primary Care Provider] - Disposition Disposition (needs filled in before D/C Order can be placed): Home, Self Care
--- NOTE | 2022-01-23 11:43 | DCINST_ITS ---
Discharge Instructions Diet Discharge Diet: No restrictions Activity Keep extremity elevated above heart level: Operative Extremity Dressing / Incision Call your doctor if your incision/area has: Continuous Slow Oozing, Sudden I ncreased Bleeding, Increased Pain/ Swelling, Increased Redness, Foul Smelling Discharge and Swelling at the incision site Change Dressing in: leave in place till F/U Cleanse incision/area with: Do not get Incision Wet Follow Up Care Please Follow Up With: Osman Ramirez MD When: 2 weeks Test Results: Test results from this visit will be discussed in further detail at your follow- up appointment, if applicable. Discharge Plan Admission Primary Reason for Your Visit: left reverse shoulder replacement Attending Provider: Osman Ramirez Primary Care Provider: Osman Mcknight Instructions Patient Instructions: Reverse Total Shoulder Replacement Discharge Orders/Prescriptions Prescriptions: New oxycodone-acetaminophen [Endocet] 5-325 mg tablet 1 tab PO Q4H MDD 6 PRN (Reason: pain) 6 Days Qty: 30 0RF No Action metformin [Glucophage] 500 mg tablet 500 mg PO BID potassium chloride 20 mEq tablet extended release 20 meq PO BID atenolol 25 mg tablet 25 mg PO QDAY simvastatin 10 mg tablet 10 mg PO QPM losartan 25 mg tablet 25 mg PO DAILY diphenhydramine HCl [Allergy Medication] 25 mg capsule 25 mg PO Q4H PRN (Reason: Allergy Symptoms) levothyroxine [Levo-T] 200 mcg tablet See Rx Instructions PO .COMPLEX Qty: 24 11RF Dose Instruction: PO 1 tab Friday - Friday Rx Instructions: PO 1 tab Friday - FRIDAY insulin glargine [Lantus Solostar U-100 Insulin] 100 unit/mL (3 mL) insulin pen 50 unit subcut QHS Label Comments: INJECT 50 UNITS SUBCUTANEOUSLY DAILY AFTER DINNER ascorbic acid (vitamin C) [Vitamin C] 500 mg Tablet 500 mg PO DAILY zinc 50 mg Capsule 50 mg PO DAILY hydrochlorothiazide 50 mg tablet 50 mg PO QDAY Qty: 30 11RF cholecalciferol (vitamin D3) 1,000 unit tablet 1,000 unit PO DAILY Qty: 30 0RF Referrals / Follow Up: Osman Mcknight MD [Primary Care Provider] - Disposition Disposition (needs filled in before D/C Order can be placed): Home, Self Care
[2022-01-23] MEDS: Lactated Ringers 1,000 ML 125 ML IV (11:55)
[2022-01-23 12:40] LABS: Bedside Glucose 171 mg/dL (74-106)
--- NOTE | 2022-01-23 13:13 | DCINST_ITS ---
Discharge Instructions Diet Discharge Diet: No restrictions Activity Keep extremity elevated above heart level: Operative Extremity Additional Activity Instructions:: no ER over 20, no FE over 90, pendulums only four times a day Dressing / Incision Call your doctor if your incision/area has: Continuous Slow Oozing, Sudden Increased Bleeding, Increased Pain/ Swelling, Increased Redness, Foul Smelling D ischarge and Swelling at the incision site Change Dressing in: leave in place till F/U Cleanse incision/area with: Do not get Incision Wet Follow Up Care Please Follow Up With: Osman Ramirez MD When: 2 weeks Test Results: Test results from this visit will be discussed in further detail at your follow- up appointment, if applicable. Discharge Plan Admission Primary Reason for Your Visit: left reverse shoulder replacement Attending Provider: Osman Ramirez Primary Care Provider: Osman Mcknight Instructions Patient Instructions: Reverse Total Shoulder Replacement Discharge Orders/Prescriptions Prescriptions: New oxycodone-acetaminophen [Endocet] 5-325 mg tablet 1 tab PO Q4H MDD 6 PRN (Reason: pain) 6 Days Qty: 30 0RF No Action metformin [Glucophage] 500 mg tablet 500 mg PO BID potassium chloride 20 mEq tablet extended release 20 meq PO BID atenolol 25 mg tablet 25 mg PO QDAY simvastatin 10 mg tablet 10 mg PO QPM losartan 25 mg tablet 25 mg PO DAILY diphenhydramine HCl [Allergy Medication] 25 mg capsule 25 mg PO Q4H PRN (Reason: Allergy Symptoms) levothyroxine [Levo-T] 200 mcg tablet See Rx Instructions PO .COMPLEX Qty: 24 11RF Dose Instruction: PO 1 tab Friday - Friday Rx Instructions: PO 1 tab Friday - FRIDAY insulin glargine [Lantus Solostar U-100 Insulin] 100 unit/mL (3 mL) insulin pen 50 unit subcut QHS Label Comments: INJECT 50 UNITS SUBCUTANEOUSLY DAILY AFTER DINNER ascorbic acid (vitamin C) [Vitamin C] 500 mg Tablet 500 mg PO DAILY zinc 50 mg Capsule 50 mg PO DAILY hydrochlorothiazide 50 mg tablet 50 mg PO QDAY Qty: 30 11RF cholecalciferol (vitamin D3) 1,000 unit tablet 1,000 unit PO DAILY Qty: 30 0RF Referrals / Follow Up: Osman Mcknight MD [Primary Care Provider] - Disposition Disposition (needs filled in before D/C Order can be placed): Home, Self Care
[2022-01-23] MEDS: oxyCODONE 5 MG Tablet PO ×2 (13:52→17:58)
[2022-01-23] MEDS: Acetaminophen 325 MG Tablet 650 MG PO ×2 (13:52→20:38)
--- NOTE | 2022-01-23 15:36 | PN.HOSP_ITS ---
Subjective Subjective Feels well postoperatively. Objective Data Objective Data Vital Signs: Vital Signs Temp Pulse Resp BP Pulse Ox O2 Del Method O2 Flow Rate 36.3 C L 72 16 128/72 H 97 Room Air 4 01/23/22 15:29 01/23/22 15:29 01/23/22 15:29 01/23/22 15:29 01/23/22 15:29 01/23/22 15:29 01/23/22 13:40 Oxygen Flow Rate (L/min) 4 Oxygen Delivery Method Room Air Weight: 95 kg Body Mass Index (BMI) 38.2 Intake & Output: Intake and Output for Last 24 Hours 01/21/22 01/22/22 01/23/22 23:59 23:59 23:59 Intake Total 3216 / 3216 Balance 3216 / 3216 Lab / Micro Data Result Diagrams: 01/22/22 13:07 01/22/22 13:05 Labs: Laboratory Results - last 24 hr 01/23/22 07:19: POC Glucose 164 H 01/23/22 12:22: POC Glucose 171 H Physical Exam Const alert and no apparent distress Constitutional Narrative: No respiratory distress. No conversational dyspnea. Resp normal respiratory effort, no retractions and no use of accessory muscles Resp Narrative: Clear to auscultation anteriorly Cardio regular rate, regular rhythm, S1 normal heart sound and S2 normal heart sound GI normal to inspection, nondistended, normoactive bowel sounds, soft to palpation, non-tender and non-distended Extremity Extremity Narrative: No lower extremity edema Assessment & Plan Assessment/Plan (1) Diabetes type 2, controlled: QUALIFIERS: Diabetes mellitus circuit designer insulin use: with circuit designer use Diabetes mellitus complication status: without complication Qualified Code(s): E11.9 - Type 2 diabetes mellitus without complications; Z79.4 - citrix administrator (current) use of insulin PLAN: Continue with insulin glargine 50 units nightly. Also add sliding scale insulin. Monitor blood sugar before every meal and at bedtime We will hold off on the patient's metformin for now until she can eat more adequately. (2) Closed fracture of left proximal humerus: PLAN: Management per orthopedics. Status post left reverse shoulder replacement. PLAN: Plan Chronic conditions * Hypertension: Continue with HCTZ and losartan * Hypothyroidism: Continue levothyroxine * Hyperlipidemia: Continue with simvastatin VTE prophylaxis: We will defer to orthopedics. Thank you for the consult. The hospital service will follow along during this patient's hospitalization. Charges/Coding Visit Charges Inpatient E&M: 02435 Subs Hosp L2
--- NOTE | 2022-01-23 17:39 | CPS ---
patient unable to comprehend
[2022-01-23 17:40] LABS: Bedside Glucose 212 mg/dL (74-106)
[2022-01-23] MEDS: Potassium Chloride Oral Tablet 20 MEQ PO (17:59)
[2022-01-23] MEDS: Insulin Lispro 100 UNIT/ML INSULN.PEN SC (17:59)
[2022-01-23] MEDS: Atorvastatin Calcium 10 MG Tablet 5 MG PO (21:52)
[2022-01-23] MEDS: Senna/Docusate Sodium 1 Tablet 2 TABLET PO (21:52)
[2022-01-23] MEDS: Insulin Glargine-YFGN 100 UNIT/ML Pen 50 UNIT SC (21:54)
[2022-01-23 22:36] LABS: Bedside Glucose 175 mg/dL (74-106)
[2022-01-24] VITALS (7 sets, daily range): BP systolic 126–139; BP diastolic 66–75; PULSE 86–89; RESP 16–18; TEMP 36.5–37; O2SAT 92–99
[2022-01-24] MEDS: oxyCODONE 5 MG Tablet PO ×2 (02:07→08:17)
[2022-01-24] MEDS: Levothyroxine 100 MCG Tablet 200 MCG PO (06:43)
[2022-01-24] MEDS: Acetaminophen 325 MG Tablet 650 MG PO ×2 (06:45→10:50)
[2022-01-24 06:50] LABS: Hematocrit 31.6 % (37-47); Hemoglobin 9.9 g/dL (12.0-15.0); Mean Corp Hgb Conc 31.3 g/dL (32-36); Mean Corpuscular Hgb 28.5 pg (27.0-32.0); Mean Corpuscular Volume 91.1 fL (81-99); Mean Platelet Vol. 11.7 fl (6.2-12.0); Platelet Count 208 K/mm3 (150-450); RBC Distribution Width SD 46.8 fl (35.1-43.9); Red Blood Count 3.47 M/mm3 (4.2-5.4); White Blood Count 12.4 K/mm3 (4.4-11.0)
--- NOTE | 2022-01-24 07:05 | NURSING ---
pt walked in the barnard-tolerated well.
[2022-01-24 07:07] LABS: BUN 8 mg/dL (7-18); Creatinine, Serum 0.43 mg/dL (0.55-1.02); Glucose 123 mg/dL (74-106)
[2022-01-24 07:08] LABS: Anion Gap 6 (5-15); BUN/Creat Ratio 18.5 RATIO (10-20); Calcium,Total 8.4 mg/dL (8.5-10.1); Chloride 103 mmol/L (98-107); EST Glomerular Filtration Rate 154 mL/min (>60); Est Glom Filt Rate - Afr Amer 186 mL/min (>60); Estimated Creatinine Clearance 42.59 ml/min; Potassium 3.8 mmol/L (3.5-5.1); Sodium Level 140 mmol/L (136-145)
[2022-01-24 07:21] LABS: Bedside Glucose 130 mg/dL (74-106)
[2022-01-24] MEDS: Cholecalciferol (VIT D3) 25 MCG TABLET (1,000 UNITS) PO (07:44)
[2022-01-24] MEDS: Potassium Chloride Oral Tablet 20 MEQ PO (07:44)
[2022-01-24] MEDS: Ascorbic Acid 500 MG Tablet PO (07:44)
[2022-01-24] MEDS: Aspirin E.C. 81 MG Tablet PO (07:44)
--- NOTE | 2022-01-24 08:41 | PCM.PN.ORT ---
Subjective Subjective Pain is under control. She was woken up at about 2 AM took her pain medication then but she is getting good rest of the labs. They came in at 6 AM to do blood work. Overall she feels like she is able to go home today. Objective Data Objective Data Postoperative day 1 left reverse total shoulder arthroplasty for fracture. Vital Signs: Vital Signs Temp Pulse Resp BP Pulse Ox O2 Del Method O2 Flow Rate 98.4 F 89 18 139/69 H 93 Room Air 2 01/24/22 06:37 01/24/22 06:37 01/24/22 06:37 01/24/22 06:37 01/24/22 07:24 01/24/22 07:24 01/24/22 06:37 Oxygen Flow Rate (L/min) 2 Oxygen Delivery Method Room Air Weight: 209 lb 7.026 oz Body Mass Index (BMI) 38.2 Intake & Output: Intake and Output for Last 24 Hours 01/22/22 01/23/22 01/24/22 23:59 23:59 23:59 Intake Total 4455.58 / 4455.58 300 / 300 Balance 4455.58 / 4455.58 300 / 300 Lab / Micro Data Attestation: I reviewed the patient's lab results. Result Diagrams: 01/24/22 04:18 01/24/22 04:18 Labs: Laboratory Results - last 24 hr 01/23/22 12:22: POC Glucose 171 H 01/23/22 17:09: POC Glucose 212 H 01/23/22 21:49: POC Glucose 175 H 01/24/22 04:18: WBC 12.4 H, RBC 3.47 L, Hgb 9.9 L, Hct 31.6 L, MCV 91.1, MCH 28.5, MCHC 31.3 L, RDW Std Deviation 46.8 H, RDW Coeff of Gagandeep 14.0, Plt Count 208, MPV 11.7 01/24/22 04:18: Sodium 140, Potassium 3.8, Chloride 103, Carbon Dioxide 31.0, Anion Gap 6, BUN 8, Creatinine 0.43 L, Estim Creat Clear Calc 42.59, Est GFR (MDRD) Af Amer 186, Est GFR (MDRD) Non-Af 154, BUN/Creatinine Ratio 18.5, Glucose 123 H, Calcium 8.4 L 01/24/22 06:42: POC Glucose 130 H Radiography Diagnostic Testing: Radiology Impression Shoulder X-Ray 01/23/22 10:26 IMPRESSION: Fluoroscopic assistance images were obtained. Dictation for documentation purposes only. Electronically Signed: Arnoldo Palacio MD at 17:00 EDT Reading Location ID and State: [facility] / [place] , Service support , Physical Exam Narrative Patient appears well and bright. Sitting up in a chair. Dressing changed to mepilex AG. Normal neurovascular status very slight bruising proximal humerus the incision looks clean and dry. Normal sensation and motor function to the axillary nerve as well as MRU and AIN/PIN. Const alert, oriented x3 and no apparent distress Assessment & Plan Assessment/Plan (1) Closed fracture of left proximal humerus: PLAN: Postop day 1 left reverse shoulder arthroplasty. If she is comfortable she may be discharged home today leave the dressing in place until follow-up pendulum exercises only 4 times a day otherwise sling wear full-time. Follow-up in the office in 2 weeks time.
[2022-01-24] MEDS: Losartan Potassium 25 MG Tablet PO (10:22)
[2022-01-24] MEDS: Atenolol 25 MG Tablet PO (10:23)
[2022-01-24] MEDS: hydroCHLOROthiazide 25 MG Tablet 50 MG PO (10:23)
--- NOTE | 2022-01-24 10:49 | CASEMGMT ---
Social Work Per RN initial assessment, pt states she does have a living will and HCPOA naming her Ad Pringle. Pt is aware that documents are not on file at [facility]. DAVONTE Shannon
[2022-01-24] MEDS: Insulin Lispro 100 UNIT/ML INSULN.PEN SC (11:00)
--- NOTE | 2022-01-24 11:18 | CASEMGMT ---
RN REN Assessment: Face to face for initial transition planning/care coordination assessment. RN REN introduced self and role at [facility], pt voices understanding and consents to assessment. Pt is A&O x4 sitting up in chair, dressed and ready for dc. at bedside. Care providers, pharmacy, and demographics verified/updated. Admitting Dx: L shoulder replacement reverse PCP:Juan Luis Specialists:esteban Ramirez Pharmacy: [facility] Retail Insurance: [facility], MMO Prescription Benefit: yes LW/HPOA: Pt states she has a LW/DPOA and her DPOA is her Ad Pringle. LNOK: Ad Pringle, ; Han Pringle, son Living Arrangements: Pt lives with and son in a single story house with 2 steps to enter with a rail. Pt reports she is typically I in ADL's and denies concerns at home. Transportation: Pt drives self and denies concerns with transportation. Pt will transport her to medical appts post surgery. DME/HHC/SNF: Pt does not use AD. She has access to a cane and walker if needed. Pt denies hx of HHC or SNF stays. Pt states no concerns with going home at time of dc. Pt states no further concerns/needs. CM to follow. Advised pt to ask CM if any further question/concerns/needs arise, voices understanding. Pt Goal: Home Plan: Home
[2022-01-24 11:30] LABS: Bedside Glucose 228 mg/dL (74-106)
== END 2022-01-24 12:19 | disposition home or self-care (01) ==
LOC: SDC 15:33 → MS3 16:30
PROVIDERS: Anesthesiology; Admitting Provider Orthopaedic Surgery Sports Medicine; PCP Family Medicine; Referring Provider Orthopaedic Surgery Sports Medicine; Visit Provider Orthopaedic Surgery Sports Medicine
PROC: (CPT 23472; principal; 2022-01-23 08:45)
DX: S42.202A Unspecified fracture of upper end of left humerus, initial encounter for closed fracture (principal); E11.9 Type 2 diabetes mellitus without complications; Z79.4 Long term (current) use of insulin; E08.9 Diabetes mellitus due to underlying condition without complications; I10 Essential (primary) hypertension; E78.00 Pure hypercholesterolemia, unspecified; Z79.899 Other long term (current) drug therapy; Z79.84 Long term (current) use of oral hypoglycemic drugs; W01.0XXA Fall on same level from slipping, tripping and stumbling without subsequent striking against object, initial encounter; Y93.9 Activity, unspecified; Y92.89 Other specified places as the place of occurrence of the external cause
CPT/HCPCS: 23472; 01638; 36415; 73030; 76000; 80048; 80053; 82962; 83036; 83735; 84443; 85025; 85027; 93005; 96360; 96361; 97166; 99218; 99251; C1776; J7040; J7120; G0378; G0463; J2405; J3490

== ENCOUNTER 2022-05-16 13:00 | Outpatient (RCR) | payer MEDICARE, OTHER, SELFPAY ==
--- NOTE | 2022-02-12 13:05 | HP.PTEVAL_ITS ---
Patient's Visit Information KATHERIN CHANEY is a 66 year old F referred to Physical Therapy by Dr. Osman Ramirez MD with a diagnosis of closed fx proximal L humerus s/p TSA reverse 01/23. Date of Evaluation: 02/12/22 Physical Therapist: Amadeo Buitrago, DPT, OCS, CSCS - Visit Plan Frequency: 1-2x /Week Duration: 3 Months Plan: weekly to progress as allowed by doctor(limited to er 20 until 03/07, d/c sling at 02/19ish, no reaching behind back). AAROM and PROM elevation and progress to isometric and strength when able.,. progress HEP and precautions. Next session stick OH supine elevated. - Subjective L broken shoulder falling on lip in driveway. That was 12/29/21. (01/23/22 had reverse tSA) and is 3 weeks out. Slow but steady. Pain is not bad but she can tell when weather changes. If it is bumped it hurts, comfortable at rest and no pain meds in 2 weeks. HEP: ball squeeze, elbow AROM,. Sleep is OK in chair, will do this for 6 weeks. Sling is in most of time but on with sleeping. Sling needs help. Basic ADLs she needs help from . can do top off but hard to get on. Pants require help. 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 Could take care of house prior to this. Can only do so much one handed right now. Is right handed. - Pain L shoulder Pain Intensity (Out of 10): 0 Pain Intensity Range: 0, 1 - Objective L. Walks into PT with sling on L independently. , /Trasnfers I cahir and to 45 degree elevated bed. Scap AROM L 50% of R but not painful. elbow and wrist adn hand AROM symmetrical adn without pain B. R shoulder aROM WFL. L shoulder PROM 120 fexion, 90 abduction both limited by some minor pain and tightness. ER 20 limited by pain. IR not tested. Incsion is healed well with just mil scar tissue distally, no signs of redness heat or swelling. - Balance/Special Test Scores Quick DASH Score: 61.3625 - Goals Goal 1:: ST;. 130 PROM and 25 er by 6 weeks Goal Time Frame: 2-4 Weeks Goal 2:: LT: Pain and overall function improved by 75%. Goal Time Frame: 6-8 Weeks Goal 3:: aroM 140 elevation adn 40 er to allow for full funciton L UE Goal Time Frame: 6-8 Weeks Goal 4:: quickdash score20 or less Goal Time Frame: 6-8 Weeks Goal 5:: Dress and housework I on own Goal Time Frame: 6-8 Weeks - Rehabilitation Potential Physical Therapy Diagnosis: s/p L TSA 01/23 Rehabilitation Potential: Good - Anticipated Interventions Patient/Client Instruction: Educate patient on: Condition, Plan of Care For the Purpose of:: To decrease pain, To increase ROM, To improve muscle performance and motor function, To increase tolerance to activity/condition/position Therapeutic Exercise to Include: Strength training, Postural training, Passive ROM, Active ROM For the Purpose of:: To decrease pain, To increase ROM, To improve muscle performance and motor function, To increase tolerance to activity/condition/position Manual Therapy Techniques to Include: Scar massage, Mobilization, Passive ROM For the Purpose of:: To decrease pain, To increase ROM, To improve nutrient delivery to tissue, To improve muscle performance and motor function Thank you for the opportunity to evaluate your patient. For Medicare and Medicare HMO plans, please review the plan of care and approve it. It will need to be FAXED BACK to us at [phone] for Medicare purposes. For Medicare only, by signing this I certify the plan of care. Please let me know if there are questions or concerns regarding this plan of care. Physician Signature: Date:
--- NOTE | 2022-02-26 14:30 | HP.PTREVAL_ITS ---
Dr. Osman Ramirez MD, It has been my pleasure to treat KATHERIN CHANEY over the last 3 visits for closed fx proximal L humerus s/p TSA reverse 01/23. Please see the progress note below for an update on the physical therapy plan of care! Subjective: Not feeling too bad. Pain is not an issue. Sleeping well in chair. To doctor next week. Did exercise at home. overhead adn rotation without incident. Objective/Function: 130 AAROM stick seated. 40 stick ext rotation, no discomfort AROM barely to neutral. 90 seated stick elevation. Tends to hold elbow flexed on L side adn needs cues to relax it. Also has some moderate scar tissue distal in incision, taught massage today. Emphaiszed no IR or reaching behind back and wean sling to tolerance today. Plan Plan: pt to doctor next week, check and progress, plan to continue weekly therapy to progress HEP and strengthening Balance/Gait/Functional tests - Balance/Special Test Scores Quick DASH Score: 61.3625 Goals Goal 1:: ST;. 130 PROM and 25 er by 6 weeks Goal Time Frame: 2-4 Weeks Goal 2:: LT: Pain and overall function improved by 75%. Goal Time Frame: 6-8 Weeks Goal 3:: aroM 140 elevation adn 40 er to allow for full funciton L UE Goal Time Frame: 6-8 Weeks Goal 4:: quickdash score20 or less Goal Time Frame: 6-8 Weeks Goal 5:: Dress and housework I on own Goal Time Frame: 6-8 Weeks Anticipated Interventions Patient/Client Instruction: Educate patient on: Condition, Plan of Care For the Purpose of:: To decrease pain, To increase ROM, To improve muscle performance and motor function, To increase tolerance to activity/condition/position Therapeutic Exercise to Include: Strength training, Postural training, Passive ROM, Active ROM For the Purpose of:: To decrease pain, To increase ROM, To improve muscle performance and motor function, To increase tolerance to activity/ condition/position Manual Therapy Techniques to Include: Scar massage, Mobilization, Passive ROM For the Purpose of:: To decrease pain, To increase ROM, To improve nutrient delivery to tissue, To improve muscle performance and motor function Please do not hesitate to contact me at [phone] by phone or if you have questions or concerns regarding this new plan of care! Sincerely, Amadeo Buitrago, DPT, OCS, CSCS
--- NOTE | 2022-04-09 13:58 | HP.PTREVAL_ITS ---
Dr. Osman Ramirez MD, It has been my pleasure to treat KATHERIN CHANEY over the last 9 visits for closed fx proximal L humerus s/p TSA reverse 01/23. Please see the progress note below for an update on the physical therapy plan of care! Subjective: To doctor next week. Doing Ok painwise. No problem with pain. No pain. Sleeping OK. Biggest problem is I can't reach behind to put bra on. Other benitez activities close to normal. Reaching up is difficult but she notices this less. Would have trouble with stirring so avoided cooking. Would have to use r arm and is right handed. HEP going well. Feels like she is improving slowly with her deficits but arduous. runnjing sweeper adn doing laundry without a problem. Wants to drive. Objective/Function: 82 AROM flexion adn abduction. 140 PROM and can hold at 100 when lifted to taht point but not actively. IR to hip bone. ER to 30 AROM and 50 PROM. strength in elevation 3-, ex rotation 3, IR 3+ on l shoulder. Overall is improving slowly, only frustrated with IR and inability to lift OH. Will f/u with doctor next week. Plan Plan: Continue weekly for IR if allwoed by doctor and Overhead strength and progression of HEP. Balance/Gait/Functional tests - Balance/Special Test Scores Quick DASH Score: 11.3625 Goals Goal 1:: ST;. 130 PROM and 25 er by 6 weeks Goal Time Frame: 2-4 Weeks Goal Progress: Goal Met Goal 2:: LT: Pain and overall function improved by 75%. Goal Time Frame: 6-8 Weeks Goal Progress: Goal Met Goal 3:: aroM 140 elevation adn 40 er to allow for full funciton L UE Goal Time Frame: 6-8 Weeks Goal Progress: SLOW, arduous Goal 4:: quickdash score20 or less Goal Time Frame: 6-8 Weeks Goal Progress: Goal Met Goal 5:: Dress and housework I on own Goal Time Frame: 6-8 Weeks Goal Progress: Progressing Goal 6:: lift to 100 active flexion and start process of getting arm behind back if allowed by doctor. Goal Time Frame: 4-6 Weeks Goal Progress: NEW GOAL Anticipated Interventions Patient/Client Instruction: Educate patient on: Condition, Plan of Care For the Purpose of:: To decrease pain, To increase ROM, To improve muscle performance and motor function, To increase tolerance to activity/condition/position Therapeutic Exercise to Include: Strength training, Postural training, Passive ROM, Active ROM For the Purpose of:: To decrease pain, To increase ROM, To improve muscle performance and motor function, To increase tolerance to activity/conditio n/position Manual Therapy Techniques to Include: Scar massage, Mobilization, Passive ROM For the Purpose of:: To decrease pain, To increase ROM, To improve nutrient delivery to tissue, To improve muscle performance and motor function Please do not hesitate to contact me at [phone] by phone or if you have questions or concerns regarding this new plan of care! Sincerely, Amadeo Buitrago, DPT, OCS, CSCS
--- NOTE | 2022-05-16 13:30 | HP.PTDCSUM ---
It has been my pleasure to treat KATHERIN CHANEY referred by Dr. Osman Ramirez MD, with the diagnosis of closed fx proximal L humerus s/p TSA reverse 01/23 for a total of 13 visit(s). Discharge Date: Please see the following information for a summary of their discharge status. Subjective: Pain is not an issue. Sleeping well. Just doesn't go up or behind me as far as I would like. To doctor in July 17. Activities pretty normal at home but not as simple as they used to be and never will be. L shoulder Pain Intensity (Out of 10): 0 % Improvement: 85 Objective/Function: 105 seated AROM flexiona dn 110 standing. 40 AROM ext rotation, PSIS IR. PROM is 140 flexion, 60 ext rotation. strength is 3+ er, 4 IR, 4- abd, 4 flexion. on L. Doing well with function except fro bra fastening and acceptable of limitations. Goal 1:: ST;. 130 PROM and 25 er by 6 weeks Goal Progress: Goal Met Goal 2:: LT: Pain and overall function improved by 75%. Goal Progress: Goal Met Goal 3:: aroM 140 elevation adn 40 er to allow for full funciton L UE Goal Progress: SLOW, arduous Goal 4:: quickdash score20 or less Goal Progress: Goal Met Goal 5:: Dress and housework I on own Goal Progress: Goal Met Goal 6:: lift to 100 active flexion and start process of getting arm behind back if allowed by doctor. Goal Progress: Goal Met Plan: d/c If there are questions or concerns regarding this patient's physical therapy, please feel free to call me at [phone]. Thank you for the referral of this patient. Sincerely, Amadeo Buitrago, DPT, OCS, CSCS Balance/Gait/Functional tests - Balance/Special Test Scores Quick DASH Score: 0
== END 2022-05-16 19:00 | disposition home or self-care (01) ==
LOC: PT 13:00
PROVIDERS: PCP Family Medicine; Referring Provider Orthopaedic Surgery Sports Medicine; Visit Provider Orthopaedic Surgery Sports Medicine
DX: S42.202D Unspecified fracture of upper end of left humerus, subsequent encounter for fracture with routine healing (principal)
CPT/HCPCS: 97110; 97161; 97164

== ENCOUNTER → 2022-10-21 | Outpatient (CLI) | payer MEDICARE, OTHER, SELFPAY ==
[2022-10-23 05:07] LABS: Fructosamine 313 umol/L (0-285)
== END | disposition home or self-care (01) ==
LOC: BFHLAB 15:14
PROVIDERS: PCP Orthopaedic Surgery; Referring Provider Nurse Practitioner Family; Visit Provider Orthopaedic Surgery
DX: E11.29 Type 2 diabetes mellitus with other diabetic kidney complication (principal); R80.9 Proteinuria, unspecified
CPT/HCPCS: 36415; 82985

== ENCOUNTER → 2023-03-14 | Outpatient (CLI) | payer MEDICARE, OTHER, SELFPAY ==
[2023-03-16 09:07] LABS: Fructosamine 268 umol/L (0-285)
== END | disposition home or self-care (01) ==
LOC: BFHLAB 13:53
PROVIDERS: PCP Nurse Practitioner Family; Referring Provider Orthopaedic Surgery; Visit Provider Nurse Practitioner Family
DX: E11.9 Type 2 diabetes mellitus without complications (principal)
CPT/HCPCS: 36415; 82985

== ENCOUNTER 2023-09-23 11:16 | Outpatient (RCR) | payer MEDICARE, OTHER, SELFPAY | END 2023-09-26 23:59 | LOC: NS 11:16 | PROVIDERS: PCP Nurse Practitioner Family; Referring Provider Specialist; Visit Provider Specialist | DX: Z71.3 Dietary counseling and surveillance (principal); E11.9 Type 2 diabetes mellitus without complications; M25.561 Pain in right knee; M17.11 Unilateral primary osteoarthritis, right knee; E66.01 Morbid (severe) obesity due to excess calories; Z68.41 Body mass index [BMI] 40.0-44.9, adult | CPT/HCPCS: 97802 ==

== ENCOUNTER 2023-10-06 12:30 | Outpatient (RCR) | payer MEDICARE, OTHER, SELFPAY ==
--- NOTE | 2023-09-09 14:00 | HP.PTEVAL ---
Patient's Visit Information Visit Information Visit Information: KATHERIN CHANEY is a 68 year old F referred to Physical Therapy by Dr. Jose Lerma MD with a diagnosis of PAIN IN RIGHT KNEE ,UNLATERAL PRIMARY OSTEOARTHRITIS. Date of Evaluation: 09/09/23 Physical Therapist: Leroy Humphrey, PT, Cert MDT, OCS Visit Plan Frequency: 2-3x /Week Duration: 4-6 Weeks Plan: PLAN TO HAVE TKR RIGHT NOVEMBER 30 Subjective Subjective: This 68 y/o female presents to physical therapy with right knee pain ,osteoarthritis . Patient plans to undergo TKR surgery Nov 30.Patient has knee pain for 3 years . Patient progressively stiffness with edema. Seen Family Dr then referred to DR Lerma x-rays showed DJD severe .Patient recommended PT . Patient taking no medication. Patient global. Aggravating extended walking ,standing and stairs one step at time. Unable to squat or kneel. Described ache with stiffness. Denies paresthesia/tingling.Patient sleeps in recliner and unable to sleep. Patient condition affects QOL and function.Patient goals to have TKR. SOCIAL: retired VOCATION: RETIRED Pain Right Knee: Pain Intensity (Out of 10): 5 Pain Intensity Range: 10 Objective Objective: POSTURE: mild forward posture GAIT: ambulates with antalgic gait lateral sway right side slow mitzi NEURO: denies paresthesia/tingling EDEMA: mild effusion AROM: 0-130 degrees supine flexion MMT: quads/hams 4/5 ,( peak force ) hip flexion right 17.8 ,hip abd 13.2 FLEXABILITY: hamstrings min tight STAIRS: one step at time with rails Special Tests R Knee Valgus - MCL: Negative R Knee Varus - LCL: Negative Balance/Special Test Scores Lower Extremity Functional Score: 28 Goals Goal 1:: Patient to be I with HEP for knee Goal Time Frame: 4-6 Weeks Goal 2:: Patient to improve peak force of hip by 5-10# to improve function and walking Goal Time Frame: 4-6 Weeks Goal 3:: Patient to demonstrate 40% improvement with less pain and improve function Goal Time Frame: 4-6 Weeks Goal 4:: Patient to improve LFES score by 5 points to improve QOL Goal Time Frame: 4-6 Weeks Rehabilitation Potential Physical Therapy Diagnosis: This patient has right knee DJD with pain/stiffness ,weakness impairs walking stand and housework tasks thus benefit from skilled PT Rehabilitation Potential: Good Anticipated Interventions Patient/Client Instruction: Educate patient on: Condition and Plan of Care For the Purpose of:: To decrease pain, To decrease swelling/inflammation, To increase ROM, To improve muscle performance and motor function, To improve ability to perform ADL's, To increase tolerance to activity/condition/position, To decrease level of supervision to perform tasks, To improve ability of physical actions for home/community/work/leisure, To improve gait and locomotor functions, To increase flexibility/ROM, To improve endurance, To improve balance, To reduce risk of recurrence and To improve tolerance to ADL's Therapeutic Exercise to Include: Strength training, Endurance training, Balance training and Active ROM Comment: HIP/KNEE For the Purpose of:: To decrease pain, To increase ROM, To improve muscle performance and motor function, To improve ability to perform ADL's, To increase tolerance to activity/condition/position, To improve ability of physical actions for home/community/work/leisure, To improve health of tissue, To decrease soft tissue restriction, To increase flexibility/ROM and To improve tolerance to ADL's Text: Thank you for the opportunity to evaluate your patient. For Medicare and Medicare HMO plans, please review the plan of care and approve it. It will need to be FAXED BACK to us at [phone] for Medicare purposes. For Medicare only, by signing this I certify the plan of care. Please let me know if there are questions or concerns regarding this plan of care. Physician Signature: Date:
--- NOTE | 2023-10-06 12:47 | HP.PTDCSUM ---
Discharge Summary D/C summary: It has been my pleasure to treat KATHERIN CHANEY referred by Dr. Jose Lerma MD, with the diagnosis of PAIN IN RIGHT KNEE ,UNLATERAL PRIMARY OSTEOARTHRITIS for a total of 5 visit(s). Discharge Date: 10/06/23 Please see the following information for a summary of their discharge status. Subjective Subjective: Ready to TKR Not alot of pain just stiffness Pain Right Knee: Pain Intensity (Out of 10): 1 Overall Improvement % Improvement: 40 Objective Objective/Function: POSTURE: mild forward posture GAIT: ambulates with antalgic gait lateral sway right side slow mitzi NEURO: denies paresthesia/tingling EDEMA: mild effusion AROM: 0-135 degrees supine flexion MMT: quads/hams 4/5 ,( peak force ) hip flexion right 33.2 ,hip abd 23.2 FLEXABILITY: hamstrings min tight STAIRS: one step at time with rails Goals Goal 1:: Patient to be I with HEP for knee Goal Progress: Goal Met Goal 2:: Patient to improve peak force of hip by 5-10# to improve function and walking Goal Progress: Goal Met Goal 3:: Patient to demonstrate 40% improvement with less pain and improve function Goal Progress: Goal Met Goal 4:: Patient to improve LFES score by 5 points to improve QOL Goal Progress: Goal Met Plan Plan: D/C D/C Information Discharge Comments: Scheduled TKA November/ sentence: If there are questions or concerns regarding this patient's physical therapy, please feel free to call me at [phone]. Thank you for the referral of this patient. Sincerely, Leroy Humphrey, PT, Cert MDT, OCS Balance/Gait/Functional tests Balance/Special Test Scores Lower Extremity Functional Score: 39 Improvement % Improvement: 40
== END 2023-10-06 19:00 | disposition home or self-care (01) ==
LOC: PT 12:30
PROVIDERS: PCP Nurse Practitioner Family; Referring Provider Specialist; Visit Provider Specialist
DX: M25.561 Pain in right knee (principal); M17.11 Unilateral primary osteoarthritis, right knee
CPT/HCPCS: 97110; 97162; 97530

== ENCOUNTER 2023-10-21 12:50 | Outpatient (RCR) | payer MEDICARE, OTHER, SELFPAY | END 2023-10-26 23:59 | LOC: NS 12:50 | PROVIDERS: PCP Nurse Practitioner Family; Referring Provider Specialist; Visit Provider Specialist | DX: Z71.3 Dietary counseling and surveillance (principal); E11.9 Type 2 diabetes mellitus without complications; M25.561 Pain in right knee; M17.11 Unilateral primary osteoarthritis, right knee; Z68.41 Body mass index [BMI] 40.0-44.9, adult; E66.01 Morbid (severe) obesity due to excess calories | CPT/HCPCS: 97803 ==

== ENCOUNTER → 2023-11-11 | Outpatient (CLI) | payer MEDICARE, OTHER, SELFPAY ==
--- NOTE | 2023-11-11 12:21 | CT_ITS ---
CT RIGHT LOWER EXTREMITY WITH 3-D IMAGING CLINICAL INDICATION: Pain in right knee. Right GEORGES knee. TECHNIQUE: Axial CT images of the right lower extremity (including pelvis, right knee, and right ankle) was performed without IV contrast material. Coronal and sagittal reformats were provided. The protocol utilizes one or more of the following dose reduction techniques: automated exposure control, adjustment of mA and/or kV according to patient size, and/or use of iterative reconstruction technique. RADIATION DOSAGE (If Supplied By Facility): CTDIvol = ( 19.01 ) mGy, DLP = ( 1373.23 ) mGycm COMPARISON: Right knee radiographs dated 07/23/2022. FINDINGS: Bones: There is minimal degenerative arthrosis of the hip joints bilaterally. There is mild pubic symphysis arthrosis. There is tricompartment degenerative arthrosis of the right knee, most severe in the medial femorotibial compartment where there is severe joint space narrowing, marginal osteophyte formation, and subchondral sclerosis. There is a small ossicle in the posterior horn of the medial meniscus. There are plantar and posterior calcaneal spurs. Osseous structures are intact without evidence of fracture or dislocation. No lytic or blastic osseous masses. Soft Tissues: There is a small right knee joint effusion. The deep soft tissue structures are unremarkable. The superficial soft tissues are unremarkable without evidence of edema, hematoma, or foreign body. There are atherosclerotic calcifications. CT/Extremity Lower without Contra IMPRESSION: Tricompartment degenerative arthrosis of the right knee, most severe in the medial femorotibial compartment. Small right knee joint effusion. Electronically Signed: Noman Barrientos MD at 14:26 EDT ,
== END | disposition home or self-care (01) ==
LOC: CT 12:17
PROVIDERS: PCP Nurse Practitioner Family; Referring Provider Specialist; Visit Provider Specialist
DX: M25.561 Pain in right knee (principal); M17.11 Unilateral primary osteoarthritis, right knee
CPT/HCPCS: 73700

== ENCOUNTER 2023-12-01 07:11 | Observation (INO) | payer MEDICARE, OTHER, SELFPAY ==
--- NOTE | 2023-11-11 12:17 | EKG12_ITS ---
Test Reason : PRE OP Blood Pressure : / mmHG Vent. Rate : 077 BPM Atrial Rate : 077 BPM P-R Int : 182 ms QRS Dur : 076 ms QT Int : 372 ms P-R-T Axes : 028 -03 029 degrees QTc Int : 420 ms Normal sinus rhythm Normal ECG Confirmed by AURELIO CAMERON, FRANCES ([id number]), electronic news gathering editor RENA FIELDS ([id number]) on 11/12/2023 9:32:28 AM Referred By: Jose Lerma Confirmed By:REBEKAH CAREY MD
[2023-11-11 13:20] LABS: Absolute Lymphocyte Count 2.61 X10^3/uL (0.83-4.51); Absolute Neutrophil Count 7.2 X10^3/uL (2.0-7.7); Basophil# 0.04 X10^3/uL; Basophil% 0.4 % (0-1); Eosinophil# 0.06 X10^3/uL; Eosinophils% 0.6 % (0-5); Hematocrit 41.9 % (37-47); Hemoglobin 12.9 g/dL (12.0-15.0); Lymphocyte # 2.61 X10^3/ul (0.83-4.51); Lymphocyte % 24.2 % (19-41); Mean Corp Hgb Conc 30.8 g/dL (32-36); Mean Corpuscular Hgb 26.9 pg (27.0-32.0); Mean Corpuscular Volume 87.5 fL (81-99); Mean Platelet Vol. 11.1 fl (6.2-12.0); Monocyte# 0.82 X10^3/uL; Monocyte% 7.6 % (0-10); NRBC Flagged by Analyzer 0 % (0-5); Neutrophil # 7.19 X10^3/uL (2.7-7.7); Neutrophil % 66.7 % (47-70); Platelet Count 293 K/mm3 (150-450); RBC Distribution Width CV 13.9 % (11.6-14.6); RBC Distribution Width SD 44.6 fl (35.1-43.9); Red Blood Count 4.79 M/mm3 (4.2-5.4); White Blood Count 10.8 K/mm3 (4.4-11.0)
[2023-11-11 13:53] LABS: Albumin, Serum 3.3 g/dL (3.2-5.0); Anion Gap 7 (5-15); BUN 16 mg/dL (7-18); BUN/Creat Ratio 24.7 RATIO (10-20); Calcium,Total 9.6 mg/dL (8.5-10.1); Chloride 103 mmol/L (98-107); Creatinine, Serum 0.65 mg/dL (0.55-1.02); EST Glomerular Filtration Rate 96 mL/min (>60); Est Glom Filt Rate - Afr Amer 116 mL/min (>60); Glucose 86 mg/dL (74-106); Potassium 3.3 mmol/L (3.5-5.1); Sodium Level 141 mmol/L (136-145)
[2023-11-11 14:01] LABS: Magnesium 1.5 mg/dL (1.6-2.6); Thyroid Stim Hormone (TSH) 2.62 uIU/mL (0.358-3.74)
--- NOTE | 2023-11-21 14:23 | HP.PCM_ITS ---
History and Physical History and Physical Patient Name: Josefa Pringle : 1955From:? MINH HALL PA-C DATE OF PRE-OPERATIVE EXAM: 11/21/2023 DATE OF SURGERY:? 12/01/2023 SCHEDULED PROCEDURE:? Robotic-assisted right total knee arthroplasty HISTORY OF PRESENT ILLNESS: Preoperative history and physical exam was performed on November 21, 2023.? This is a 68-year-old female who is been having ongoing pain for over 2 years with her knee.? Her pain is dull, aching and stiffness.? Her pain can reach 9/10 with activities.? She has pain increased with going up and down stairs and sitting for extended periods of time.? She does have weakness and instability with stairs.? Pain is located over the anterior knee.? Patient feels unsafe walking on uneven grounds.? She does have start up pain.? She has been using cane over the past 1 month.? She has attempted bracing with no relief.? Patient has tried [id number] nonsteroidal anti-inflammatories with little relief.? She has tried previous corticosteroid injection with only minimal relief.? Patient denies past history of surgery on her right knee.? Patient has obtain surgical clearance from the primary care provider Massiel Tovar.? She does have medical history pertinent for type 2 diabetes mellitus with recent A1c 7.3, morbid obesity with BMI 40.7, hypertension, thyroid disease, and history of kidney stones.? She denies past history of DVT or pulmonary embolism.? After failing conservative measures and discussing all treatment options with Dr. Jose Lerma, the patient does wish to proceed with a robotic assisted right total knee arthroplasty.? There is been no recent fevers, chills or recent infections. REVIEW OF SYSTEMS: Review Of Systems: Constitutional: Reports change in appetite, but denies fever and weight change. Cardiovasular: Denies chest pain, heart murmur and irregular heartbeat. Respiratory: Reports cough, but denies pneumonia, shortness of breath, tuberculosis and wheezing. Gastrointestinal: Denies constipation, diarrhea, heartburn, nausea, rectal itching, bloody stools and vomiting. Genitourinary: Denies female genital problems. Denies urinary symptoms. Musculoskeletal: Reports leg swelling, but denies pain, trouble walking and weakness. Skin: Denies Raynaud's, history of shingles and tattoo. Neurological: Denies ambulatory dysfunction, dizziness, numbness/tingling and tremor. Psychiatric: Denies anxiety, insomnia and stress. Hematologic/Lymphatic: Denies anemia, bleeding/bruising tendency and past transfusion. Reviewed, no changes. PAST MEDICAL HISTORY: Advance Care Plan: Other Directive, LIVING WILL Effective Date: 01/01/2022 Other Directive, POA Effective Date: 01/01/2022 Past Medical History: Medical Problems: Diabetes, High Blood Pressure, Kidney Stones, Thyroid Disease Covid-19 - VACCINATED Accidents: Fracture - (12/29/2021) LT HUMERUS- FELL Surgical Hx: Section - (1980) (1983) REGINA/BROWN Gallbladder - (1998) REGINA Hysterectomy - (1998) REGINA Kidney Stones - REGINA Shoulder Replacement LT Anesthesia Complications: Yes - HAS TO TAKE MORE Assistive Devices: Glasses Reviewed and updated. SOCIAL HISTORY: Social History: Marital: .Occupation: Retired.Work Status: Retired.Hand Dominance: Right- handed. Personal Habits:? Cigarette Use: Never Smoked Cigarettes.Smokeless Tobacco: Never Used Smokeless Tobacco.E-Cigarette Use: Never used.Alcohol: Denies use.Drug Use: Denies Use.Enjoy Exercising: Exercises 1-3 x/month. Reviewed, no changes. VITALS: Ht: 61.5 Wt: 219lb Wt k.338 BMI: 40.7 BP: 138/70 Pulse: 87 Resp: 16 T: 97.3 T: 36.3C Pain Level: 5 O2SatR: 96 ALLERGIES: Sulfa Fosamax MEDICATIONS: Mupirocin 2 % use qtip and apply inside each nostril twice a day until the day of surgery, Losartan Potassium 25 mg daily, Levothyroxine Sodium 200 mcg po 1 tab friday - friday, [facility] High-Potency Vitamin D 1000 Unit daily, Hydrochlorothiazide 50 mg daily, Metformin HCL 500 mg twice a day, Potassium Chloride ER 20 Meq twice a day, Atenolol 25 mg daily, Simvastatin 10 mg every evening, Lantus 100 Unit/ML inject 20 units subcutaneously at bedtime (discard vial 28 days after opening), Biotin 5 mg, Allergy? prn, Glipizide 5 mg 1 by mouth every day, Fluconazole 150 mg 2t po weekly, Zinc Gluconate 50 mg daily, Vitamin C 500mg take1 tablet by mouth once daily., Vitamin D 50 mcg (1999 Ut) 1 by mouth 5 days a week PRE-OP EXAM: General appearance:NORMAL? Other: Eyes: Conjunctivae and lids: NORMAL? Pupils: ERR Ears, Nose, Mouth, and Throat: NORMAL? Other: Inspection of lips, teeth and gums: NORMAL?? Other: Neck: Examination of neck: no masses noted. Respiratory: Assessment of respiratory effort: NORMAL?? Other: ? Auscultation of lungs: clear to auscultation no wheezes, rhonchi or rales. Cardiovascular:? Auscultation of heart: regular rate and rhythm, no murmurs, gallops or rubs. PHYSICAL EXAMINATION: On exam patient does walk with an antalgic gait with use of a cane.? Her right knee is without erythema.? She does have moderate effusion.? She has tenderness to palpation along the medial joint line and minimal on the lateral joint line.? She has varus alignment which is partially correctable on exam.? Range of motion: Lacks 4 full extension to 110 flexion.? Stable to varus/valgus stress test, stable to anterior/posterior drawer exam with firm endpoint.? Sensation intact to light touch. IMAGING STUDIES: Previous x-rays of the right knee reveal varus alignment with medial joint space narrowing, subchondral sclerosis, osteophyte formation consistent with severe stage IV bone on bone erosive osteoarthritis with lateral subluxation of the tibia.? There is chondrocalcinosis in the lateral compartment.? Patient also has severe stage IV bone on bone erosive osteoarthritis on her left knee. IMPRESSION: 1.? Severe right knee osteoarthritis with varus alignment 2.? Severe left knee osteoarthritis with varus alignment 3.? Hypertension 4.? Type 2 diabetes mellitus: A1c 7.3 5.? Thyroid disease 6.? Morbid obesity with BMI 40.7 7.? History of kidney stones PLAN: Dr. Jose Lerma did discuss and review with the patient all treatment options including surgical versus nonsurgical options.? Patient does wish to proceed with the above-stated procedure.? Potential risks, benefits, and complications of the procedure were discussed in detail including but not limited to , infection, nerve and blood vessel damage, persistent pain, numbness, tingling, paresthesias, blood clot, pulmonary embolism, and requirement for possible further surgery.? The patient expressed full understanding and has no further questions for the doctor.? Patient does agree to proceed with the above-stated procedure and has signed the surgery consent form. POST-OP MEDICATION PLAN: Pain Medications: Postoperative pain regimen will be initiated by Dr. Jose Lerma in the hospital.? We will be using doxycycline postoperatively for 2 weeks due to preoperative workup with MSSA, A1c greater than 7.0, and BMI greater than 40.0.? I discussed with the patient while taking the doxycycline she is more sensitive to the sunlight and should take appropriate precautions.? Also recommend probiotic while taking the antibiotic.? She will bring her walker to the hospital for postoperative use. DVT Prophylaxis:? Aspirin 81 mg twice daily for 4 weeks postoperatively.? Denies past history of DVT or pulmonary embolism This dictation was created using voice recognition software. Phonetic and/or grammatical errors may exist. ___? I have re-examined the patient.? There are no clinical changes since date of exam. ___? See progress notes for changes. ___? Dictated on admission Date: ? Time: Signature:
[2023-12-01] VITALS (15 sets, daily range): BP systolic 85–150; BP diastolic 47–90; PULSE 90–107; RESP 12–18; TEMP 36.1–37.1; O2SAT 73–100; BMI 39.7
[2023-12-01] MEDS: Lactated Ringers 1,000 ML 15 ML IV (08:15)
[2023-12-01] MEDS: Magnesium 2 GM for ERAS IV (08:35)
[2023-12-01] MEDS: Insulin Lispro 100 UNIT/ML INSULN.PEN SC ×4 (09:08→23:39)
--- NOTE | 2023-12-01 09:33 | PCM.PRE.AN2 ---
ASA Classification* ASA Classification ASA Classification: 3 Assessment & Plan Anesthesia* Anesthesia Assessment Anesthesia Assessment: Discussed sedation and/or anesthesia options, risks, benefits, and alternatives with patient/parents/legal guardian/POA. Questions invited. The patient/parents/legal guardian/POA seems to understand and agrees to proceed with anesthesia plan. Reviewed the physical assessment, medical history, allergy history and patient home medications list prior to surgery/procedure/anesthetic and documented any changes. Performed airway and anesthesia risk assessments. Anesthesia Type Anesthesia Type: Spinal (*see written pre anesthesia record for full assessment) Anesthesia Focused Assessment* Temperature: 98.8 F Pulse Rate: 101 Blood Pressure: 150/73 Respiratory Rate: 14 Pulse Ox: 96 Airway Assessment Mouth opens: >3 cm Mallampati Score: II Focused Labs Anesthesia Preop lab: CBC WBC 10.8 K/mm3 (4.4-11.0) 11/11/23 13:00 RBC 4.79 M/mm3 (4.2-5.4) 11/11/23 13:00 Hgb 12.9 g/dL (12.0-15.0) 11/11/23 13:00 Hct 41.9 % (37-47) 11/11/23 13:00 Plt Count 293 K/mm3 (150-450) 11/11/23 13:00 CHEMISTRY Potassium 3.3 mmol/L (3.5-5.1) L 11/11/23 13:00 Sodium 141 mmol/L (136-145) 11/11/23 13:00 Magnesium 1.5 mg/dL (1.6-2.6) L 11/11/23 13:00 BUN 16 mg/dL (7-18) 11/11/23 13:00 Creatinine 0.65 mg/dL (0.55-1.02) 11/11/23 13:00 Glucose 86 mg/dL (74-106) 11/11/23 13:00 POC Glucose 228 mg/dL (74-106) H 01/24/22 10:55 TSH 2.62 uIU/mL (0.358-3.74) 11/11/23 13:00 COAG Pre-Assessment Diagnosis/Proposed Procedure Planned Operative Procedure(s): ROBOTIC ASSISTED RIGHT TOTAL KNEE ARTHROPLASTY Anesthesia History Anesthesia History - medical billing coordinator: Anesthesia History - medical billing coordinator Hx Hospitalization No 11/07/23 11:12 Any Problems With Anesthesia Yes: N,V. USES MORE 11/07/23 11:12 ANESTHESIA TO GET TO SLEEP Cholinesterase deficiency No 11/07/23 11:12 You/Your Family Experience No 11/07/23 11:12 fever (hyperthermia) with Relationship Recent Exposure to Contagious No 12/01/23 08:39 Disease Does patient have nerve No 11/07/23 11:12 stimulator Patient instructed to have device shut off --Does patient have Pacemaker No 12/01/23 08:39 or ICD? When Was Last Pacemaker Check QUESTION #4 FULL TEXT: You/Your Family Experience fever (hyperthermia) with Anesthesia Last Oral Intake Last Oral intake: Last Oral Intake NPO since 05:00 12/01/23 08:39 Meds taken in AM with sips of Yes 12/01/23 08:39 water? Meds patient instructed to levothyroxine 12/01/23 08:39 take am of surgery PONV PONV - medical billing coordinator: PONV - medical billing coordinator Female Yes 11/07/23 11:12 HX of Motion Sickness No 11/07/23 11:12 HX of N/V After Surgery Yes 11/07/23 11:12 Non-Smoker Yes 11/07/23 11:12 Duration of Surgery greater Yes 11/07/23 11:12 than 60 minutes Number of Risk Factors 4 11/07/23 11:12 PONV Score Severe Risk 11/07/23 11:12 Height & Weight Height & Weight: Anesthesia: Height & Weight Height 5 ft 2 in 12/01/23 08:39 Weight: 98.6 kg 12/01/23 08:39 Body Mass Index (BMI) 39.7 12/01/23 08:39 Respiratory Assessment Respiratory Assessment - medical billing coordinator: Respiratory Tract Infection Hx - medical billing coordinator Hx Respiratory Tract Infection No 11/07/23 11:12 STOP Sleep Apnea STOP Sleep Apnea - medical billing coordinator: STOP Sleep Apnea - medical billing coordinator Hx Hypertension Yes: CONTROLLED WITH MEDS 11/07/23 11:12 Hx Sleep Apnea No 11/07/23 11:12 CPAP BIPAP Do you snore loudly (louder Yes 11/07/23 11:12 than talking or can be heard Do you often feel tired/ No 11/07/23 11:12 fatigued/ sleepy during daytime? Has anyone observed you stop No 11/07/23 11:12 breathing during sleep? STOP Results Positive 11/07/23 11:12 QUESTION #5 FULL TEXT : Do you snore loudly (louder than talking or can be heard through closed doors)? Tobacco Use History Tobacco Use History - medical billing coordinator: Tobacco Use History - medical billing coordinator Tobacco Use Smoking Status Never smoker 11/07/23 11:12 Hx Tobacco Use No 11/07/23 11:12 Years Smoking Packs Smoked per Day Smoking Cessation Date was within the last 15 years Hx Smoking Cessation Date Hx Smoking Cessation Counseling Hematologic Medial History Hematologic Hx - medical billing coordinator: Hematologic Medical Hx - rn clinical documentation specialist Hx of Blood Transfusion No 11/07/23 11:12 Hx of Transfusion in last 3 No 11/07/23 11:12 Months Date of Last Transfusion (if within last 3 months) Ever experience any problems No 11/07/23 11:12 with transfusion(s)? Specify any problems Hx of Preganancy in last 3 No 11/07/23 11:12 Months Nurse Filling Out Transfusion DSCHRIBER 11/07/23 11:12 & Questions: Date: 11/07/23 11/07/23 11:12 Time: 11:14 11/07/23 11:12 Patient unable to answer at this time (ie. confused, unrespo /Reproduction History /Reproductive History - medical billing coordinator: /Reproductive Hx- medical billing coordinator Hx Now No 11/07/23 11:12 Gestational Age (in weeks): EDC: Hx Hx Para Hx Section SAB No 11/07/23 11:12 Active Medications Active Medications: Current Medications Generic Name Dose Route Start Last Admin Trade Name Freq PRN Reason Stop Dose Admin Acetaminophen 1,000 mg 12/01/23 10:45 12/01/23 09:21 Acetaminophen 500 Mg Tablet PO 12/01/23 10:46 Not Given X1 ONE Acetaminophen 1,000 mg 12/01/23 14:00 Acetaminophen 500 Mg Tablet PO Q8 [facility] Ascorbic Acid 500 mg 12/01/23 10:00 Ascorbic Acid 500 Mg Tablet PO DAILY ANNY Aspirin 81 mg 12/01/23 10:00 Aspirin 81 Mg Tab.Chew PO BID [facility] Atenolol 25 mg 12/01/23 07:15 Atenolol 25 Mg Tablet PO QDAY [facility] Protocol Cholecalciferol 50 mcg 12/01/23 10:00 Cholecalciferol (Vit D3) 25 Mcg Tablet (1,000 Units) PO DAILY [facility] Sodium Chloride 77.4 ml/ 0 ml 12/01/23 10:45 Ropivacaine 200 mg/ OPERA.SITE 12/01/23 10:46 Epinephrine HCl 0.6 mg/ X1 ONE Ketorolac Tromethamine 30 mg/ Morphine Sulfate 5 mg Doxycycline Monohydrate 100 mg 12/02/23 13:00 Doxycycline 100 Mg Capsule PO BID [facility] Enteral Nutritional Formula 237 ml 12/01/23 08:00 Ensure Surgery 237 Ml Liquid PO TIDCM [facility] Famotidine 20 mg 12/01/23 10:00 Famotidine 20 Mg Tablet PO DAILY [facility] Fluconazole 300 mg 12/03/23 07:10 Fluconazole 150 Mg Tablet PO WE [facility] Gabapentin 600 mg 12/01/23 10:45 12/01/23 09:21 Gabapentin 600 Mg Tablet PO 12/01/23 10:46 Not Given X1 ONE Glipizide 5 mg 12/01/23 10:00 Glipizide 5 Mg Tablet PO BID [facility] Cefazolin Sodium 2 gm/ Sodium 110 mls @ 150 mls/hr 12/01/23 10:45 Chloride IV 12/01/23 11:28 PREOP ONE Tranexamic Acid 1,000 mg/ 110 mls @ 660 mls/hr 12/01/23 10:45 Sodium Chloride IV 12/01/23 10:54 X1 ONE Tranexamic Acid 1,000 mg/ 110 mls @ 660 mls/hr 12/01/23 10:45 Sodium Chloride IV 12/01/23 10:54 X1 ONE Lactated Ringer's 1,000 mls @ 999 mls/hr 12/01/23 10:45 IV 12/01/23 11:45 .Q1H1M ANNY Lactated Ringer's 1,000 mls @ 125 mls/hr 12/01/23 10:45 IV 12/01/23 18:44 .Q8H ANNY Magnesium Sulfate 2 gm/ 104 mls @ 208 mls/hr 12/01/23 10:45 12/01/23 08:35 Dextrose IV 12/01/23 11:14 208 mls/hr X1 ONE Administration Cefazolin Sodium 1 gm in 50 mls @ 150 mls/hr 08/05/24 14:00 IV 12/01/23 22:19 Q8 ANNY Lactated Ringer's 1,000 mls @ 15 mls/hr 12/01/23 08:15 12/01/23 08:15 IV 15 mls/hr .Q48H ANNY Administration Insulin Glargine 30 unit 12/01/23 10:00 Insulin Glargine-Yfgn 100 Unit/Ml Pen SC BID ANNY Insulin Human Lispro 1 - 6 unit 12/01/23 10:45 12/01/23 09:08 Insulin Lispro 100 Unit/Ml Insuln.Pen SC 12/01/23 18:00 2 u Q4H PRN PRN Administration BG>/= 180, SEE PROTOCOL Protocol Ketorolac Tromethamine 15 mg 12/01/23 07:11 Ketorolac 15 Mg/Ml Vial IV 12/03/23 07:13 Q6H PRN PRN Pain Score 1-5 Losartan Potassium 25 mg 12/01/23 10:00 Losartan Potassium 25 Mg Tablet PO DAILY [facility] Protocol Meloxicam 7.5 mg 12/03/23 10:00 Meloxicam 7.5 Mg Tablet PO BID [facility] Metformin HCl 500 mg 12/01/23 10:00 Metformin Hcl 500 Mg Tablet PO BID [facility] Morphine Sulfate 2 - 4 mg 12/01/23 07:11 Morphine 2 Mg/Ml Syringe IV Q2H PRN PRN Pain Score 6-10 Non-Formulary Medication 50 mg 12/01/23 07:15 Hydrochlorothiazide PO QDAY [facility] Non-Formulary Medication 200 mcg 12/01/23 07:15 Levothyroxine [Levo-T] PO MOTUWETHFR [facility] Non-Formulary Medication 10 mg 12/01/23 21:00 Simvastatin PO QPM [facility] Non-Formulary Medication 50 mg 12/01/23 10:00 Zinc PO DAILY [facility] Ondansetron HCl 4 mg 12/01/23 07:11 Ondansetron 4 Mg/2 Ml Vial IV Q8H PRN PRN NAUSEA Oxycodone HCl 5 - 10 mg 12/01/23 07:11 Oxycodone 5 Mg Tablet PO Q4H PRN PRN Pain Score 4-10 Potassium Chloride 20 meq 12/01/23 22:00 Potassium Chloride Oral Tablet 20 Meq PO QHS [facility] Promethazine HCl 12.5 mg 12/01/23 07:11 Promethazine 25 Mg/Ml Syringe IM Q6H PRN PRN NAUSEA/VOMITING Protocol Senna/Docusate Sodium 2 tablet 12/01/23 10:00 Senna/Docusate Sodium 1 Tablet PO BID ANNY Sodium Chloride 5 - 15 ml 12/01/23 10:45 0.9% Nacl Peripheral Flush Adult/Peds IV UD PRN SALINE FLUSH PFSH Medical History Insulin dependent diabetes mellitus Ambulates with cane Arthritis Low iron Dietary restriction History of pain when walking History of edema Right knee pain Wears glasses Post-menopausal Non-smoker Closed fracture of left proximal humerus Hx of nephrolithotomy with removal of calculi Thyroid disease High cholesterol HTN (hypertension) Diabetes type 2, controlled Home Medications ?Medication ?Instructions ?Recorded ?Last Taken ?Type atenolol 25 mg tablet 25 mg PO QDAY 05/21/17 01/23/22 History metformin 500 mg tablet 500 mg PO BID 05/21/17 11/30/23 History (Glucophage) simvastatin 10 mg tablet 10 mg PO QPM 05/21/17 11/30/23 History hydrochlorothiazide 50 mg tablet 50 mg PO QDAY #30 tabs 09/03/17 11/30/23 Rx losartan 25 mg tablet 25 mg PO DAILY 06/25/18 11/30/23 History ascorbic acid (vitamin C) 500 mg 500 mg PO DAILY 01/18/22 11/25/23 History tablet (Vitamin C) zinc 50 mg capsule 50 mg PO DAILY 01/18/22 11/25/23 History insulin glargine 100 unit/mL (3 30 unit subcut BID 01/30/23 11/30/23 History mL) subcutaneous pen (Lantus 15 unit Solostar U-100 Insulin) cholecalciferol (vitamin D3) 25 2,000 unit PO DAILY 11/07/23 11/30/23 History mcg (1,000 unit) tablet fluconazole 150 mg tablet 300 mg PO WE 11/07/23 11/26/23 History glipizide 5 mg tablet 5 mg PO BID 11/07/23 11/30/23 History levothyroxine 200 mcg tablet 200 mcg PO MOTUWETHFR 11/07/23 12/01/23 History (Levo-T) potassium chloride 20 mEq 20 meq PO QHS 11/07/23 11/30/23 History tablet,extended release(part/cryst) (Klor-Con M) Allergy/AdvReac Type Severity Reaction Status Date / Time alendronate sodium (From Allergy Severe Unknown Verified 12/01/23 09:10 Fosamax) Sulfa (Sulfonamide Allergy Severe Unknown Verified 12/01/23 09:10 Antibiotics) Family History Mother Cancer Father Cancer Surgical History Hx of colonoscopy History of reverse total replacement of left shoulder joint H/O thyroidectomy H/O: hysterectomy Hx of cholecystectomy H/O: Social History household members: none Smoking Status: Never smoker second hand exposure: No alcohol intake: never substance use type: does not use Review of Systems (Anesthesia) ROS Narrative System reviewed and no additional complaints, except as documented.
[2023-12-01 09:56] LABS: Bedside Glucose 249 mg/dL (74-106)
--- NOTE | 2023-12-01 10:00 | KNEE_PTH ---
PATIENT: KATHERIN CHANEY LOC: MS3 U#:[id number] AGE/SX: 68/F ROOM: [facility] RE12/01/[address]: Dr. Jose Lerma MD : [id number] BED: 1 DIS: 12/02/2023 SPEC #: [id number] RECD: 12/01/23 12:58 STATUS: ELIEL REJessie #: [id number] LADAN: 12/01/23 10:[address]: Jose Lerma DEPT: SURGICAL PATHOLOGY RECD BY: Latoya Dominguez ENTERED: 12/01/23 13:13 SP TYPE: TOTAL KNEE OTHR DR: Massiel Tovar, ARMANDO Tissues: Knee, NOS Procedures: Decalcification bone/plaque Surgery Specimen Level IV HEADER OPERATION: Total knee replacement robotic arm assist PRE-OP DIAGNOSIS: Severe right knee osteoarthritis with varus alignment TISSUE SUBMITTED: Bone and tissue right knee MICROSCOPIC DIAGNOSIS Bone and tissue of right knee, total knee resection: Severe degenerative joint disease. Mild synovial hyperplasia. AM: 12/04/2023 MICROSCOPIC DESCRIPTION Slides are reviewed. GROSS DESCRIPTION Received is one container designated bone and soft tissue right knee. The specimen consists of multiple fragments of osborne-yellow bone measuring in aggregate 11.0 x 9.0 x 2.5 cm. Also in the specimen container are multiple fragments of yellow-white soft tissue measuring in aggregate 7.0 x 7.0 x 2.0 cm. A number of bony fragments contain articular surfaces consistent with tibial plateau and femoral condyle and displaying prominent osteophyte formation, eburnation and bone erosion. Planer Stone sections are submitted in two cassettes as follows: 1 - soft tissue, 2 - bone after decalcification. / ROSA/ 12/01/2023 TC:5 [facility]: [id number], [id number]
[2023-12-01] MEDS: Cefazolin 2 GM in 0.9% Normal Saline (100mL Bag) 100 ML IV (10:07)
[2023-12-01] MEDS: TXA 1000mg in NS100 100ml (IVPB at Incision) 660 MG IV (10:16)
[2023-12-01] MEDS: JPS (Morphine 10mg/ml) OPERA.SITE (10:59)
--- NOTE | 2023-12-01 11:17 | PCM.OPRPT ---
Report of Operation Date of Procedure: 12/01/23 Pre-Operative Diagnosis: Right knee primary osteoarthritis Post-Operative Diagnosis: Right knee primary osteoarthritis Surgery/Procedure Performed:: Right minimally invasive robotic total knee replacement Description of Surgical Findings:: Stable knee with good patella tracking. Patella had good residual cartilage we elected not to resurface the patella. Surgeon: Jose Lerma business office technology instructor: David Bowens Type of Anesthesia: Spinal Anesthesiologist: Amadeo Fernando Special Medications: 2 g Ancef, 1 g TXA at incision, 1 g TXA closure, 10 mg Decadron, joint cocktail (5 mg Duramorph, 30 mL of 0.5% Ropivicaine, 1000 units of epinephrine, 30 mg of Toradol) Specimen's removed: Bony cuts Estimated Blood Loss (mL): 100 Fluids Replaced: 1000 mL crystalloid Description of Procedure: Implants used: 1. Ransom size 3 triathlon cruciate retaining distal femoral press-fit component, cemented due to poor press-fit 2. Arben size 3 press-fit tritanium tibial baseplate 3. Ransom X3 9 mm CS polyethylene Brief history operative indications: 68-year-old F with history of right knee osteoarthritis with radiographic findings with loss of joint space, osteophyte formation and subchondral sclerosis. Failed conservative measures as mentioned in the H&P. Discussion of total knee arthroplasty as well as risk and benefits were discussed the patient including but not limited to blood loss, DVTs, PEs, neurovascular damage, general risk of anesthesia including loss of life, and stiffness or instability were discussed with patient. Patient demonstrated understanding and was able to sign informed consent. Procedure: On the date of procedure patient's right lower extremity was marked in the preoperative area. The patient was then taken back to the operating room where the patient was placed on the table in the supine position. All bony prominences were identified a well-padded. Anesthesia assumed control of the C-spine and airway and remained controlled throughout the remainder of the procedure. A tourniquet was placed on the right upper thigh and the leg was prepped in a sterile fashion. The surgeon then scrubbed at this time .Upon reentering the room right lower extremity was draped in a standard orthopedic fashion. A timeout was then called and everyone agreed upon the side, the site, the procedure to be performed, patient's identity and antibiotics given. Esmarch bandage was used to exsanguinate the extremity and the tourniquet was placed up to 250 mmHg with the knee in flexion. A midline skin incision was made and sharp dissection was taken down through skin subcutaneous tissue and fat. The standard medial parapatellar incision was made and the patella was subluxed laterally. An Appropriate deep MCL release was done and the fat pad was resected. Our attention was then directed to the patella. The patella was everted and found to be appropriate to retain. The knee was then flexed up in 2 femoral pins were placed inside the incision and 2 tibial pins were placed outside the incision in the medial tibia bicortically. Once this was completed the 2 checkpoints in the femur and tibia were placed. Knee was then flexed up and the bony landmarks were registered. Once this was completed knee was taken through range of motion and manually stressed allowing us to a plan for an appropriate tibial cut. The robotic arm was brought into the field sterilely and checkpoint and saw were registered. Based on the patient's deformity the tibial cut was made in 3 degrees of varus. At this time the tensioner was then placed in the joint and ligament tension was checked at 90 degrees and full extension. Based on the patient's ligamentous tension appropriate adjustments were made to the operative plan and ligament releases were done. Once we were happy with our operative plan with balanced flexion and extension gaps our attention was directed to the femur. The robot was brought into the field sterilely and registered. Posterior condylar cuts, anterior chamfer cuts and anterior cuts were appropriately made for a size 3 femur. When these were completed the saws were switched out in the distal femoral and posterior chamfer cuts were made. Protecting the soft tissue throughout this time. A size 3 tibial base plate was selected. the knee was flexed to 90 degrees and the soft tissues and posterior osteophytes were removed from the joint. 40 cc of the periarticular injection was injected into the posterior medial corner of the joint. The appropriate trials were then placed on the femur and tibia. A trial polyethylene was trialed to ensure proper balancing and stability of the knee. The appropriate tibial internal rotation was then marked with a bovie. Our attention was then directed to the patella. Patellar tracking was checked and deemed appropriate. Once we were happy lug holes were drilled for the femur and trial components were removed. the tibia was subluxed and pinned into place and the keel was punched and drilled appropriately. Final components were verified and opened, and cement was mixed in a vacuum. Ransom Simplex cement was used. The wound was copiously irrigated with normal saline. When the cement was ready the components were impacted into place starting with the tibia, then the femur. The femur did not have a satisfactory press-fit so femur was removed bone was irrigated and cement was mixed. Femur was then cemented into place. The trial poly component was placed and the knee was placed in full extension. All excess cement was removed in the process. Once the cement had cured the tracking, alignment and balance were verified and a size 10 mm CS polyethylene component was placed. Once the final components were placed a 3-minute dilute Betadine lavage was performed followed by an Irrisept lavage was performed and the wound was copiously irrigated with normal saline solution and the periarticular injection was given. The wound was closed in a layer benitez fashion using #1 vicryl interrupted sutures for the arthrotomy, 2-0 interrupted Vicryl suture for the subcuticular layer and dilip for final skin closure. A sterile compressive dressing was then placed. The patient was then awakened from anesthesia, transferred to the [facility] and transferred to the PACU for recovery. Post op plan DVT ppx: ASA 81mg BID, thigh high compression stockings Follow up: in office in 2 weeks for wound check PT: to start POD #0 at hospital, outpatient PT should be arranged. Doxycycline 100 mg p.o. twice daily: BMI/elevated hemoglobin A1c/positive staph My physician assistant tennis professional was a vital part of this case. He was important in appropriate retraction during the case, and protection of soft tissues during bony cuts. His intimate knowledge of the case and my steps aided in safe and expedient completion of the procedure as well as appropriate position of the leg during the case. He was also vital in assisting with closure under my direct supervision. Due to the complexity of this case robotic arm was used to assist in the surgery to improve accuracy and clinical outcomes. Complications No intraoperative complications Admit VTE Documentation VTE Present on Admission: No VTE Mechan Device Prophylaxis: SCD's and Thigh High FALGUNI Hose VTE Pharm Prophylaxis ordered?: Yes
[2023-12-01] MEDS: TXA 1000mg in NS100 100ml (IVPB at Closure) 660 MG IV (11:20)
--- NOTE | 2023-12-01 12:15 | RAD_ITS ---
STUDY: X-RAY - RIGHT KNEE REASON FOR EXAM: Female, 68 years old. Post op -- AP and Lateral xray of operative knee in PACU TECHNIQUE: 2 view(s) of the knee. COMPARISON: Comparison is made with prior study dated July 15, 2022. FINDINGS: Normal visualized distal femur. Normal visualized proximal tibia and fibula. Normal proximal tibiofibular articulation. The patient is status post right total knee replacement. There is good alignment. Postoperative soft tissue changes. RAD/Knee 1 or 2 Views IMPRESSION: Status post right total knee replacement. There is good alignment. Postoperative soft tissue changes. Electronically Signed: Sesar Keith MD at 13:07 EDT ,
[2023-12-01] MEDS: Lactated Ringers 1,000 ML 999 ML IV (12:32)
[2023-12-01 12:49] LABS: Bedside Glucose 263 mg/dL (74-106)
--- NOTE | 2023-12-01 13:52 | PCM.POST.ANE ---
Anesthesia: Postop Eval I Current Vital Signs Temperature: 97 F Pulse Rate: 90 Blood Pressure: 116/90 Respiratory Rate: 18 Pulse Ox: 97 Oxygen Delivery Method: Room Air Assessment Airway patent: Yes Spontaneous unlabored respirations: Yes Mental status: Awake and Calm nausea: No Vomiting: No Anesthesia Complication: No Fluid Hydration Crystalloid volume administer (ml): 900 Total IV fluid infused: 900 Progress Note Anesthesia document: Postop Eval 1 completed: Yes
--- NOTE | 2023-12-01 14:03 | POSTOPAN2_ITS ---
Anesthesia Postop Eval I Sum Postop Eval Completion status Anesthesia document: Postop Eval 1 completed: Yes Anesthesia Postop Eval I Summary Anesthesia Postop Eval I Summary: Anesthesia Postop Eval I: Assessment Summary Airway patent Yes 12/01/23 13:53 STRIPER [email or web address].[email or web address] Spontaneous unlabored Yes 12/01/23 13:53 STRIPER MACHINE.MDOT respirations Mental status Awake,Calm 12/01/23 13:53 STRIPER MACHINE.MDOT nausea No 12/01/23 13:53 STRIPER MACHINE.MDOT Vomiting No 12/01/23 13:53 STRIPER MACHINE.MDOT Anesthesia Postop Eval I: Fluid Summary Crystalloid volume administer 900 12/01/23 13:53 STRIPER MACHINE.MDOT (ml) Colloids volume administered ( ml) Blood Product volume administered (ml) Total IV fluid infused 900 12/01/23 13:53 STRIPER MACHINE.MDOT Anesthesia Postop Eval I: Summary Notes Anesthesia Complication No 12/01/23 13:53 STRIPER MACHINE.MDOT Anesthesia Complication Comment: Post-operative progress note Anesthesia: Postop Eval II Evaluation Mental status: Awake and Calm Pain Level: 1 nausea: No Vomiting: No Complications Anesthesia Complication: No
--- NOTE | 2023-12-01 14:03 | PCM.POSTANE2 ---
Anesthesia Postop Eval I Sum Postop Eval Completion status Anesthesia document: Postop Eval 1 completed: Yes Anesthesia Postop Eval I Summary Anesthesia Postop Eval I Summary: Anesthesia Postop Eval I: Assessment Summary Airway patent Yes 12/01/23 13:53 SENIOR INVESTIGATOR.MDOT Spontaneous unlabored Yes 12/01/23 13:53 SENIOR INVESTIGATOR.MDOT respirations Mental status Awake,Calm 12/01/23 13:53 SENIOR INVESTIGATOR.MDOT nausea No 12/01/23 13:53 SENIOR INVESTIGATOR.MDOT Vomiting No 12/01/23 13:53 SENIOR INVESTIGATOR.MDOT Anesthesia Postop Eval I: Fluid Summary Crystalloid volume administer 900 12/01/23 13:53 SENIOR INVESTIGATOR.MDOT (ml) Colloids volume administered ( ml) Blood Product volume administered (ml) Total IV fluid infused 900 12/01/23 13:53 SENIOR INVESTIGATOR.MDOT Anesthesia Postop Eval I: Summary Notes Anesthesia Complication No 12/01/23 13:53 SENIOR INVESTIGATOR.MDOT Anesthesia Complication Comment: Post-operative progress note Anesthesia: Postop Eval II Evaluation Mental status: Awake and Calm Pain Level: 1 nausea: No Vomiting: No Complications Anesthesia Complication: No
[2023-12-01] MEDS: Lactated Ringers 1,000 ML 125 ML IV (15:00)
[2023-12-01 16:51] LABS: Bedside Glucose 305 mg/dL (74-106)
--- NOTE | 2023-12-01 19:26 | PCM.PN.HOSP ---
Reason for Visit Reason for Visit: Diagnoses Encounter for other preprocedural examination (12/01/23) Subjective Subjective Patient was seen and examined today at the request of orthopedic surgery, she underwent a right knee robotic replacement due to osteoarthritis. Medical problems include hypothyroidism, type 2 diabetes, and essential hypertension. Patient has no complaints at the time my examination. Objective Data Objective Data Vital Signs: Vital Signs Temp Pulse Resp BP Pulse Ox O2 Del Method O2 Flow Rate 98.0 F 99 18 128/64 H 93 Room Air 4 12/01/23 18:08 12/01/23 18:08 12/01/23 18:08 12/01/23 18:08 12/01/23 18:08 12/01/23 18:08 12/01/23 12:31 Oxygen Flow Rate (L/min) 4 Oxygen Delivery Method Room Air Weight: 98.6 kg Body Mass Index (BMI) 39.7 Intake & Output: Intake and Output for Last 24 Hours 11/29/23 11/30/23 12/01/23 23:59 23:59 23:59 Intake Total 2534 / 2534 Output Total 100 / 100 Balance 2434 / 2434 Lab / Micro Data 11/11/23 13:00 11/11/23 13:00 Labs: Laboratory Results - last 24 hr 12/01/23 08:52: POC Glucose 249 H 12/01/23 12:25: POC Glucose 263 H 12/01/23 16:34: POC Glucose 305 H Micro: Microbiology 11/11/23 13:00 Swab (Method) Nasal Screen MRSA/MSSA - Final Radiography Diagnostic Testing: Radiology Impression Knee X-Ray 12/01/23 12:15 IMPRESSION: Status post right total knee replacement. There is good alignment. Postoperative soft tissue changes. Electronically Signed: Sesar Keith MD at 13:07 EDT , Physical Exam Const alert, oriented x3, no apparent distress and healthy appearing General Appearance: cooperative, well kempt and well developed Orientation / Consciousness: awake, oriented to person, oriented to place and oriented to time HEENT normocephalic, head/scalp atraumatic and moist oral mucous membranes Eyes PERRL, EOMs intact bilaterally and conjunctivae normal Neck supple, no JVD, thyroid normal and no carotid bruits General: trachea midline Resp normal respiratory effort, no retractions, no use of accessory muscles and clear to auscultation bilaterally Auscultation: Negative for rales, rhonchi or wheezes Cardio regular rate, regular rhythm, S1 normal heart sound, S2 normal heart sound, no murmurs, no rub and no gallops GI normal to inspection, nondistended, normoactive bowel sounds, soft to palpation, non-tender and non-distended Neuro oriented x3, CN's II-XII intact bilaterally, moves all extremities, no focal motor deficits and no sensory deficits noted Sensorium / Orientation: awake and alert Speech: speech normal Psych affect normal Assessment & Plan Assessment/Plan (1) Primary osteoarthritis of right knee: PLAN: Plan 1. Type 2 diabetes-patient will remain on her home medications and I have added sliding fingerstick blood sugars and sliding scale insulin to scale. #2 essential hypertension-patient will remain on her present medications, medications will be adjusted as needed #3 hypothyroidism-patient is on Synthroid #4 hyperlipidemia-patient is on simvastatin #5 osteoarthritis #6 postop day #0 robotic replacement right knee, PT and OT will be seeing patient, orthopedic surgery is participating in her care Total clinical time spent by myself addressing the patient's medical issues, reviewing all of her data, and collaborating with the patient's care team: 35 minutes Charges/Coding Visit Charges Office Visits / Consults: [id number] OV L4 Est 30min
[2023-12-01] MEDS: Cefazolin 1 GM/50 ML BAG IV (19:38)
[2023-12-01] MEDS: Ketorolac 15 MG/ML Vial IV (21:07)
[2023-12-01] MEDS: 0.9% NaCl Peripheral Flush Adult/Peds IV (21:07)
[2023-12-01] MEDS: Aspirin 81 MG TAB.CHEW PO (21:08)
[2023-12-01] MEDS: Acetaminophen 500 MG Tablet 1000 MG PO (21:08)
[2023-12-01] MEDS: Potassium Chloride Oral Tablet 20 MEQ PO (21:08)
[2023-12-01] MEDS: Insulin Glargine-YFGN 100 UNIT/ML Pen 30 UNIT SC (21:08)
[2023-12-01] MEDS: Senna/Docusate Sodium 1 Tablet 2 TABLET PO (21:08)
[2023-12-01] MEDS: Atorvastatin Calcium 10 MG Tablet 5 MG PO (21:12)
[2023-12-01 22:13] LABS: Bedside Glucose 263 mg/dL (74-106)
[2023-12-01] MEDS: oxyCODONE 5 MG Tablet PO (23:43)
[2023-12-02] MEDS: Cefazolin 1 GM/50 ML BAG IV (01:50)
[2023-12-02] MEDS: oxyCODONE 5 MG Tablet PO ×3 (03:49→12:29)
[2023-12-02] MEDS: Acetaminophen 500 MG Tablet 1000 MG PO ×2 (03:49→12:34)
[2023-12-02] MEDS: Levothyroxine 100 MCG Tablet 200 MCG PO (03:50)
[2023-12-02 04:09] VITALS: BP 156/70; PULSE 85; RESP 16; TEMP 36.4; O2SAT 96
[2023-12-02] MEDS: glipiZIDE 5 MG Tablet PO (06:15)
[2023-12-02 06:38] LABS: Bedside Glucose 154 mg/dL (74-106)
[2023-12-02 06:59] LABS: Hematocrit 32.3 % (37-47); Mean Corpuscular Hgb 27.2 pg (27.0-32.0); Mean Platelet Vol. 11.7 fl (6.2-12.0); Platelet Count 191 K/mm3 (150-450); RBC Distribution Width CV 13.8 % (11.6-14.6); RBC Distribution Width SD 44.4 fl (35.1-43.9); Red Blood Count 3.67 M/mm3 (4.2-5.4); White Blood Count 12.2 K/mm3 (4.4-11.0)
[2023-12-02 07:08] LABS: Anion Gap 6 (5-15); BUN 17 mg/dL (7-18); BUN/Creat Ratio 25.8 RATIO (10-20); Calcium,Total 8.6 mg/dL (8.5-10.1); Chloride 106 mmol/L (98-107); Creatinine, Serum 0.66 mg/dL (0.55-1.02); EST Glomerular Filtration Rate 94 mL/min (>60); Est Glom Filt Rate - Afr Amer 114 mL/min (>60); Estimated Creatinine Clearance 71.79 ml/min; Glucose 167 mg/dL (74-106); Potassium 3.7 mmol/L (3.5-5.1); Sodium Level 141 mmol/L (136-145)
--- NOTE | 2023-12-02 07:29 | PCM.PN.ORT ---
Subjective Subjective The patient was sitting in bed upon examination. Patient denies any chest pain, shortness of breath, dizziness, lightheadedness, nausea or vomiting, or calf pain. Pain is controlled on medications. No adverse overnight events. Patient states she has been up moving already. Her pain is being controlled. She does wish to go home today as long as she is medically stable. Objective Data Objective Data Vital Signs: Vital Signs Temp Pulse Resp BP Pulse Ox O2 Del Method O2 Flow Rate 97.5 F L 85 16 156/70 H 96 Room Air 4 12/02/23 04:09 12/02/23 04:09 12/02/23 04:09 12/02/23 04:09 12/02/23 04:09 12/02/23 04:09 12/01/23 12:31 Oxygen Flow Rate (L/min) 4 Oxygen Delivery Method Room Air Weight: 98.6 kg Body Mass Index (BMI) 39.7 Intake & Output: Intake and Output for Last 24 Hours 11/30/23 12/01/23 12/02/23 23:59 23:59 23:59 Intake Total 3163.17 / 3163.17 470.83 / 470.83 Output Total 100 / 100 Balance 3063.17 / 3063.17 470.83 / 470.83 Lab / Micro Data 12/02/23 05:39 12/02/23 05:39 Labs: Laboratory Results - last 24 hr 12/01/23 08:52: POC Glucose 249 H 12/01/23 12:25: POC Glucose 263 H 12/01/23 16:34: POC Glucose 305 H 12/01/23 21:27: POC Glucose 263 H 12/02/23 05:39: WBC 12.2 H, RBC 3.67 L, Hgb 10.0 L, Hct 32.3 L, MCV 88.0, MCH 27.2, MCHC 31.0 L, RDW Std Deviation 44.4 H, RDW Coeff of Gagandeep 13.8, Plt Count 191, MPV 11.7, Sodium 141, Potassium 3.7, Chloride 106, Carbon Dioxide 29.0, Anion Gap 6, BUN 17, Creatinine 0.66, Estim Creat Clear Calc 71.79, Est GFR (MDRD) Af Amer 114, Est GFR (MDRD) Non-Af 94, BUN/Creatinine Ratio 25.8 H, Glucose 167 H, Calcium 8.6 12/02/23 06:12: POC Glucose 154 H Micro: Microbiology 11/11/23 13:00 Swab (Method) Nasal Screen MRSA/MSSA - Final Radiography Diagnostic Testing: Radiology Impression Knee X-Ray 12/01/23 12:15 IMPRESSION: Status post right total knee replacement. There is good alignment. Postoperative soft tissue changes. Electronically Signed: Sesar Keith MD at 13:07 EDT , Physical Exam Narrative Vital signs stable and afebrile. Patient has had some mild occasional tachycardia overnight. SCDs and FALGUNI hose are in place bilaterally Patient is able to plantarflex and dorsiflex actively. Sensation is intact to light touch to saphenous, sural, superficial and deep peroneal, and tibial distribution. Dressing is with mild saturation over the middle one third of the main Mepilex dressing. Negative Homans bilaterally, negative signs and symptoms of DVT. Const alert, oriented x3 and no apparent distress Assessment & Plan Assessment/Plan (1) Status post total right knee replacement: PLAN: 1. S/P right robotic assisted total knee arthroplasty POD #1 2. Continue Pain Medications: Tylenol, meloxicam, oxycodone. Do not take any other nonsteroidal anti-inflammatories while using meloxicam/Mobic. 3. DVT Prophylaxis: Take 81 mg aspirin twice daily for 4 weeks postoperatively for DVT prophylaxis. Patient denies past history of DVT or pulmonary embolism. 4. PT/OT: Weightbearing as tolerated with walker 5. H & H: 10.0/32.3, asymptomatic. Labs have been reviewed and overall stable. Postoperative drop in hemoglobin secondary to intraoperative blood loss versus dilutional component. No need for any further treatment at this time. 6. Reactive leukocytosis: 12.2, Afebrile. Patient did receive Decadron intraoperatively. No clinical signs of infection. 7. Currently on doxycycline for 2 weeks postoperatively due to preoperative MSSA positive, elevated BMI greater than 40.0, and A1c greater than 7.0. I discussed with the patient potential side effects of doxycycline including sensitivity to the sunlight and increased risk of skin burn. Recommend patient take appropriate precautions. Also recommend patient to take probiotic while on the antibiotic. Patient voiced understanding agreement. 8. Encouraged Incentive Spirometry 9. Patient is aware of postoperative constipation that can occur from 1-3 days postoperatively. Will continue with senna 2 tablets twice daily until first bowel movement. Patient was advised if not having a bowel movement after day 3 she is to contact orthopedics so appropriate change can be made. Patient voiced understanding. 10. Continue postoperative medical treatment per medicine 11. Disposition: Plan will be for discharge home today as long as patient remains medically stable, tolerates therapy, and pain is adequately controlled. Patient would like her prescriptions E scribed to [facility] pharmacy. Patient has outpatient physical therapy established. She will follow-up per postoperative instructions. Upon discharge she will contact our office with any concerns or questions. I have reviewed the [place] Automated Rx Reporting System (OARRS) report for this patient for refill pattern and other prescriber involvement as part of the appropriate surveillance for the provision of acute and chronic controlled medications. The report was requested and reviewed on the date of this entry and was considered in the prescribing process. This dictation was created using voice recognition software. Phonetic and/or grammatical errors may exist.
--- NOTE | 2023-12-02 07:34 | PCM.DC ---
Discharge Instructions Diet Discharge Diet: No restrictions Activity Discharge Activity: May Not Drive (No driving for 6 weeks postoperatively. Must also be off all narcotics and able to walk 100 feet without the use of cane or walker.) May shower in (days): 1 (Please turn dressing away from water. Okay to get wet as long as dressing is intact to skin.) Ice area for (Minutes): 20 (Every 1-2 hours while awake. Please place barrier between the skin and ice pack.) Weight Bearing Status: Weight bearing as tolerated Keep extremity elevated above heart level: Operative Extremity Dressing / Incision Call your doctor if your incision/area has: Continuous Slow Oozing, Sudden Increased Bleeding, Increased Pain/ Swelling, Increased Redness and Foul Smelling Discharge Call your doctor if you observe: Fever of 101 or Higher, Coldness, Increased Pain, Numbness or Tingling, Change in Color, Shortness of breath, Chest pain, Calf discomfort and Uncontrolled pain Remove Dressing in: 4 days (Okay to remove dressing on December 06, 2023) Additional Dressing/Incision Instructions:: Follow [facility] Post-op Instructions. Once postoperative dressing has been removed only use gentle soap and water over the incision. Do not use any ointments, Neosporin, salves, alcohol pads over the incision for 6 weeks postoperatively. Do not submerge underwater for 6 weeks postoperatively. Continue with FALGUNI hose/elastic stockings for 2 weeks postoperatively. May remove at nighttime but needs to be placed back on the leg during the day. Do NOT use alcohol with narcotic pain medication. Do NOT make important decisions while taking narcotic medication. If you have problems with taking your medication (rash, itching, nausea, etc.) call the office at once. Follow Up Care Test Results: Test results from this visit will be discussed in further detail at your follow-up appointment, if applicable. Discharge Plan Admission Admit Date/Time: 12/01/23 07:11 Attending Provider: Jose Lerma Primary Care Provider: Massiel Tovar Consulting Providers: Juan Carlos Delgado; Yash Osei Discharge Orders/Prescriptions Prescriptions: New acetaminophen 500 mg Tablet 1,000 mg PO TID 14 Days Qty: 84 0RF Rx Instructions: Do not take more than 3000 mg Tylenol in a 24-hour period. aspirin 81 mg tablet,delayed release (DR/EC) 81 mg PO BID 30 Days Qty: 60 0RF Rx Instructions: Take 81 mg aspirin twice daily for 4 weeks postoperatively for DVT prophylaxis. meloxicam 7.5 mg Tablet 7.5 mg PO BID 30 Days Qty: 60 0RF Rx Instructions: Do not take any other nonsteroidal anti-inflammatories while using meloxicam/Mobic. famotidine 20 mg Tablet 20 mg PO DAILY 30 Days Qty: 30 0RF doxycycline monohydrate 100 mg Capsule 100 mg PO BID 14 Days Qty: 28 0RF oxycodone 5 mg Tablet 5 - 10 mg PO Q4H PRN PRN (Reason: as needed for pain) 7 Days Qty: 42 0RF sennosides-docusate sodium [Stimulant Laxative Plus] 8.6-50 mg Tablet 2 tab PO BID 3 Days Qty: 12 0RF Rx Instructions: Take until first bowel movement, then as needed Continued metformin [Glucophage] 500 mg tablet 500 mg PO BID atenolol 25 mg tablet 25 mg PO QDAY simvastatin 10 mg tablet 10 mg PO QPM losartan 25 mg tablet 25 mg PO DAILY insulin glargine [Lantus Solostar U-100 Insulin] 100 unit/mL (3 mL) insulin pen 30 unit subcut BID Patient Comments: INJECT 30 UNITS SUBCUTANEOUSLY DAILY AFTER DINNER ascorbic acid (vitamin C) [Vitamin C] 500 mg Tablet 500 mg PO DAILY zinc 50 mg Capsule 50 mg PO DAILY potassium chloride [Klor-Con M20] 20 mEq tablet,ER particles/crystals 20 meq PO QHS glipizide 5 mg tablet 5 mg PO BID fluconazole 150 mg tablet 300 mg PO WE levothyroxine [Levo-T] 200 mcg tablet 200 mcg PO MOTUWETHFR Rx Instructions: PO 1 tab Friday - FRIDAY cholecalciferol (vitamin D3) 1,000 unit tablet 2,000 unit PO DAILY hydrochlorothiazide 50 mg tablet 50 mg PO QDAY Qty: 30 11RF Referrals / Follow Up: Massiel Tovar NP-C [Primary Care Provider] - Physical,Therapy [Other] - 12/05/23 3:00 pm Jackeline Carter PA [Med Staff - [facility]] - 12/12/23 2:00 pm Disposition Disposition (needs filled in before D/C Order can be placed): Home, Self Care
[2023-12-02] MEDS: metFORMIN HCl 500 MG Tablet PO (08:17)
[2023-12-02] MEDS: Aspirin 81 MG TAB.CHEW PO (08:18)
[2023-12-02] MEDS: Losartan Potassium 25 MG Tablet PO (08:18)
[2023-12-02] MEDS: Senna/Docusate Sodium 1 Tablet 2 TABLET PO (08:18)
[2023-12-02] MEDS: Famotidine 20 MG Tablet PO (08:18)
[2023-12-02] MEDS: hydroCHLOROthiazide 25 MG Tablet 50 MG PO (08:18)
[2023-12-02] MEDS: Zinc Sulfate 50 mg zinc (220 mg) ORAL capsule PO (08:19)
[2023-12-02] MEDS: Cholecalciferol (VIT D3) 25 MCG TABLET (1,000 UNITS) 50 MCG PO (08:19)
[2023-12-02] MEDS: Ascorbic Acid 500 MG Tablet PO (08:19)
[2023-12-02] MEDS: Atenolol 25 MG Tablet PO (08:19)
[2023-12-02] MEDS: Insulin Glargine-YFGN 100 UNIT/ML Pen 30 UNIT SC (08:22)
--- NOTE | 2023-12-02 10:15 | CASEMGMT ---
AVINASH MCCLURE Assessment: Face to Face with pt for initial transition planning/care coordination assessment. AVINASH MCCLURE introduced self and role at [facility], pt voices understanding and consents to assessment. Pt is A&O x4 and answers all questions appropriately at this time. Pt sitting up in chair in no distress. Pt family in room, pt agreeable to discussing DC plan with family in room. Care providers, pharmacy, and demographics verified/updated. Strata: 2 Admitting Dx: Total Knee PCP: Guy Specialists: Maria Guadalupe Olson Pharmacy: [facility] Insurance: [facility], Medical [place] Prescription Benefit: yes LNOK: , Son Living Arrangements: Pt lives with and son in a 1 story home with a ramp to enter. ADLs: Pt states I with ADLs and IADLs Transportation: Pt drives self and denies concerns with transportation. DME: Wheeled Walker, Cane, Tub bench. HHC/SNF: Denies Hx of. Pt states no concerns with going home at time of dc. Pt states no further concerns/needs. CM to follow. Advised pt to ask CM if any further question/concerns/needs arise, voices understanding. Pt Goal: Home Plan: Home with outpatient therapy scheduled at , SOC is 12/04. Rosemarie DA SILVA CM
[2023-12-02 11:00] VITALS: BP 134/62; PULSE 81; RESP 16; TEMP 36.8; O2SAT 97
[2023-12-02] MEDS: Doxycycline 100 MG CAPSULE PO (12:31)
--- NOTE | 2023-12-02 12:48 | PHA.DC_ITS ---
Pharmacy [facility] Service has performed discharge medication reconciliation and counseling for this patient. 1. ACETAMINOPHEN 1000MG PO Q8 2. The patient's discharge medication list was reviewed for discrepancies and discrepancies were resolved. The patient was counseled on the following discharge medications and changes in medications for homegoing were reviewed. The Reason for Use, instructions for use, and potential side effects were reviewed for all new medications. The patient's questions regarding all of their medications were answered. The patient was able to verbally demonstrate an understanding of their discharge medications. The patient demonstrated some understanding but would benefit from further education and reinforcement. The patient was not able to adequately demonstrate understanding.
--- NOTE | 2023-12-02 12:48 | PHA.DC.MC.R ---
Pharmacy [facility] Service has performed discharge medication reconciliation and counseling for this patient. Patient requested meds to beds, this [facility] called retail and requested delivery. 1. ACETAMINOPHEN 1000MG PO Q8 2. ASPIRIN 81 MG PO BID X 30 DAYS 3. MELOXICAM 7.5MG PO BID 4. FAMOTIDINE 20MG PO DAILY 5. DOXYCYCLINE 100MG PO BID X 14 DAYS 6. OXYCODONE 5-10MG PO Q4H PRN PAIN 7. SENNA/DOCUSATE 2T PO BID UNTIL FIRST BM, THEN TAKE PRN CONSTIPATION The patient's discharge medication list was reviewed for discrepancies and discrepancies were resolved. The patient was counseled on the following discharge medications and changes in medications for homegoing were reviewed. The Reason for Use, instructions for use, and potential side effects were reviewed for all new medications. The patient's questions regarding all of their medications were answered. The patient was able to verbally demonstrate an understanding of their discharge medications. Medications at Discharge Home Medications atenolol 25 mg tablet 25 mg PO QDAY 05/21/17 metformin 500 mg tablet (Glucophage) 500 mg PO BID 05/21/17 simvastatin 10 mg tablet 10 mg PO QPM 05/21/17 hydrochlorothiazide 50 mg tablet 50 mg PO QDAY #30 tabs 09/03/17 losartan 25 mg tablet 25 mg PO DAILY 06/25/18 ascorbic acid (vitamin C) 500 mg tablet (Vitamin C) 500 mg PO DAILY 01/18/22 zinc 50 mg capsule 50 mg PO DAILY 01/18/22 insulin glargine 100 unit/mL (3 mL) subcutaneous pen (Lantus Solostar U-100 Insulin) 30 unit subcut BID 01/30/23 cholecalciferol (vitamin D3) 25 mcg (1,000 unit) tablet 2,000 unit PO DAILY 11/07/23 fluconazole 150 mg tablet 300 mg PO WE 11/07/23 glipizide 5 mg tablet 5 mg PO BID 11/07/23 levothyroxine 200 mcg tablet (Levo-T) 200 mcg PO MOTUWETHFR 11/07/23 potassium chloride 20 mEq tablet,extended release(part/cryst) (Klor-Con M) 20 meq PO QHS 11/07/23 acetaminophen 500 mg tablet 1,000 mg (2 x 500 mg) PO TID 14 days #84 tabs 12/02/23 aspirin 81 mg tablet,delayed release 81 mg PO BID 30 days #60 tabs 12/02/23 doxycycline monohydrate 100 mg capsule 100 mg PO BID 14 days #28 caps 12/02/23 famotidine 20 mg tablet 20 mg PO DAILY 30 days #30 tabs 12/02/23 meloxicam 7.5 mg tablet 7.5 mg PO BID 30 days #60 tabs 12/02/23 oxycodone 5 mg tablet 5 - 10 mg (1 - 2 x 5 mg) PO Q4H PRN PRN as needed for pain 7 days #42 tabs 12/02/23 sennosides 8.6 mg-docusate sodium 50 mg tablet (Stimulant Laxative Plus) 2 tab PO BID 3 days #12 tabs 12/02/23
== END 2023-12-02 13:19 | disposition home or self-care (01) ==
LOC: SDC 17:34 → AC 17:34 → SDC 17:35 → MS3 17:35
PROVIDERS: Anesthesiology; Admitting Provider Specialist; PCP Nurse Practitioner Family; Referring Provider Specialist; Visit Provider Specialist
PROC: 0SRC0JZ Replacement of Right Knee Joint with Synthetic Substitute, Open Approach (ICD-10-PCS; CPT 27447; principal; 2023-12-01 09:30)
DX: M17.0 Bilateral primary osteoarthritis of knee (principal); E66.01 Morbid (severe) obesity due to excess calories; Z68.41 Body mass index [BMI] 40.0-44.9, adult; E11.9 Type 2 diabetes mellitus without complications; Z79.4 Long term (current) use of insulin; Z79.84 Long term (current) use of oral hypoglycemic drugs; E03.9 Hypothyroidism, unspecified; I10 Essential (primary) hypertension; M21.161 Varus deformity, not elsewhere classified, right knee; M21.162 Varus deformity, not elsewhere classified, left knee; Z79.899 Other long term (current) drug therapy; Z79.890 Hormone replacement therapy
CPT/HCPCS: 27447; S2900; 01402; 64447; 36415; 73560; 80048; 82040; 82962; 83735; 84443; 85025; 85027; 87077; 87081; 88305; 88311; 93005; 94668; 96361; 96365; 96366; 96375; 97110; 97162; 97165; 97530; 97535; 99221; 99252; C1776; J7040; J7120; A4216; G0378; G0463

== ENCOUNTER 2024-02-05 13:00 | Outpatient (RCR) | payer MEDICARE, OTHER, SELFPAY | END 2024-02-05 19:00 | disposition home or self-care (01) | LOC: PT 13:00 | PROVIDERS: PCP Nurse Practitioner Family; Referring Provider Physician Assistant Surgical; Visit Provider Physician Assistant Surgical | DX: Z47.1 Aftercare following joint replacement surgery (principal); Z96.651 Presence of right artificial knee joint | CPT/HCPCS: 97110; 97140; 97161; 97530 ==

== ENCOUNTER → 2024-03-08 | Outpatient (CLI) | payer MEDICARE, OTHER, SELFPAY ==
[2024-03-08 15:10] LABS: Absolute Lymphocyte Count 2.97 X10^3/uL (0.83-4.51); Absolute Neutrophil Count 6.1 X10^3/uL (2.0-7.7); Basophil# 0.05 X10^3/uL; Basophil% 0.5 % (0-1); Eosinophil# 0.08 X10^3/uL; Eosinophils% 0.8 % (0-5); Hematocrit 41.2 % (37-47); Hemoglobin 12.2 g/dL (12.0-15.0); Lymphocyte # 2.97 X10^3/ul (0.83-4.51); Lymphocyte % 29.9 % (19-41); Mean Corp Hgb Conc 29.6 g/dL (32-36); Mean Corpuscular Hgb 25.6 pg (27.0-32.0); Mean Corpuscular Volume 86.6 fL (81-99); Mean Platelet Vol. 11.3 fl (6.2-12.0); Monocyte# 0.72 X10^3/uL; Monocyte% 7.3 % (0-10); NRBC Flagged by Analyzer 0 % (0-5); Neutrophil # 6.08 X10^3/uL (2.7-7.7); Neutrophil % 61.2 % (47-70); Platelet Count 330 K/mm3 (150-450); RBC Distribution Width CV 14.5 % (11.6-14.6); RBC Distribution Width SD 46.4 fl (35.1-43.9); Red Blood Count 4.76 M/mm3 (4.2-5.4); White Blood Count 9.9 K/mm3 (4.4-11.0)
[2024-03-08 15:39] LABS: ALB/GLOB Ratio 0.8 RATIO (0.9-2.4); AST(SGOT) 14 U/L (15-37); Alanine Aminotransfer ALT/SGPT 15 U/L (13-56); Albumin, Serum 3.6 g/dL (3.2-5.0); Alkaline Phosphatase 91 U/L (45-117); Anion Gap 9 (5-15); BUN 19 mg/dL (7-18); BUN/Creat Ratio 28.1 RATIO (10-20); Chloride 102 mmol/L (98-107); Cholesterol 188 mg/dL (200); Creatinine, Serum 0.68 mg/dL (0.55-1.02); EST Glomerular Filtration Rate 92 mL/min (>60); Est Glom Filt Rate - Afr Amer 111 mL/min (>60); Globulin 4.4 g/dL (2.2-4.2); Glucose 60 mg/dL (74-106); High Density Lipoprotein 51 mg/dL; Potassium 3.4 mmol/L (3.5-5.1); Sodium Level 142 mmol/L (136-145); Triglycerides 135 mg/dL; Very Low Density Lipoprotein 27 mg/dL (5-40)
[2024-03-08 15:41] LABS: Vitamin D,25 Hydroxy 50.9 ng/mL
== END | disposition home or self-care (01) ==
LOC: BFHLAB 13:40
PROVIDERS: PCP Nurse Practitioner Family; Referring Provider Nurse Practitioner Family; Visit Provider Nurse Practitioner Family
DX: I10 Essential (primary) hypertension (principal); E78.5 Hyperlipidemia, unspecified; E55.9 Vitamin D deficiency, unspecified
CPT/HCPCS: 36415; 80053; 80061; 82306; 85025

== ENCOUNTER → 2024-11-24 | Outpatient (CLI) | payer MEDICARE, OTHER, SELFPAY ==
--- NOTE | 2024-11-24 15:16 | CT_ITS ---
PROCEDURE: CT LEFT LOWER EXTREMITY WITHOUT CONTRAST 11/24/2024 REASON FOR EXAM: SPRAIN/PAIN/EFFUSION TECHNIQUE: CT of the left knee without contrast. Coronal and Sagittal reconstructions were provided. One or more dose reduction techniques were used (e.g., Automated exposure control, adjustment of the mA and/or kV according to patient size, use of iterative reconstruction technique). RADIATION DOSE SUMMARY: CTDlvol: 15.35 mGy DLP: 545.65 mGycm COMPARISON: None. FINDINGS: There is an acute nondisplaced vertically oriented fracture through the distal left femur lateral condyle, with intra-articular extension. Additionally there is a nondisplaced fracture at the anterolateral aspect of the medial femoral condyle, best seen on the axial sequence. No acute fracture of the imaged proximal tibia or fibula. No dislocation. Moderate degenerative arthrosis primarily characterized by medial tibiofemoral joint space narrowing, and mild marginal osteophytosis. Small traumatic knee joint effusion. Mild generalized soft tissue swelling about the knee. Moderate peripheral atherosclerotic vascular calcifications. CT/Extremity Lower without Contra IMPRESSION: Acute nondisplaced fractures of the distal left femur lateral and medial condyl es with intra-articular extension, as described above. Small traumatic knee joint effusion. Moderate degenerative arthrosis primarily with medial joint space narrowing. Reading Location: [id number]
== END | disposition home or self-care (01) ==
LOC: CT 15:15
PROVIDERS: PCP Nurse Practitioner Family; Referring Provider Physician Assistant Surgical; Visit Provider Physician Assistant Surgical
DX: S83.92XA Sprain of unspecified site of left knee, initial encounter (principal); E11.9 Type 2 diabetes mellitus without complications; X58.XXXA Exposure to other specified factors, initial encounter
CPT/HCPCS: 36415; 73700; 83036

== ENCOUNTER → 2025-02-03 | Outpatient (CLI) | payer MEDICARE, OTHER, SELFPAY | END | disposition home or self-care (01) | LOC: LAB 14:58 | PROVIDERS: PCP Nurse Practitioner Family; Referring Provider Nurse Practitioner Family; Visit Provider Nurse Practitioner Family | DX: E11.65 Type 2 diabetes mellitus with hyperglycemia (principal) | CPT/HCPCS: 36415; 83036 ==